=== PATIENT | female | born 1980 | race Caucasian/White ===

== ENCOUNTER 2022-01-22 13:09 | Emergency (ER) | payer MEDICARE, SELFPAY ==
[2022-01-22 13:15] VITALS: BP 128/66; PULSE 79; RESP 20; TEMP 36.5; O2SAT 98
== END 2022-01-22 13:25 | disposition left before discharge ==
DX: Z53.21 Procedure and treatment not carried out due to patient leaving prior to being seen by health care provider (principal)

== ENCOUNTER 2022-04-29 13:05 | Emergency (ER) | payer MEDICARE, MEDICAID, SELFPAY ==
[2022-04-29 13:10] VITALS: BP 116/86; PULSE 61; RESP 20; TEMP 36.6; O2SAT 96
--- NOTE | 2022-04-29 14:14 | ED.GENADUL_ITS ---
Discharge Plan Disposition Patient Disposition: Home Condition: Good Discharge Details Clinical Impression: Encounter for medication refill Primary Care Provider: None,None ED Provider: Denise Alejo Home Meds and New Rx's Prescriptions: New insulin degludec [Tresiba U-100 Insulin] 100 unit/mL solution 40 unit subcut QAM 30 Days Qty: 12 0RF Continued gabapentin [Neurontin] 600 MG tablet 600 mg PO TID insulin aspart U-100 [Novolog Flexpen U-100 Insulin] 100 UNIT/ML insulin pen Sub-Q TID Label Comments: unsure of dose / ran out insulin glargine [Basaglar KwikPen U-100 Insulin] 100 UNIT/ML insulin pen Sub-Q HS Label Comments: unsure of dose / ran out insulin aspart U-100 [Novolog Flexpen U-100 Insulin] 100 UNIT/ML insulin pen 5 units SQ TID Qty: 1 0RF Rx Instructions: Injected by subcutaneous route 5 units of insulin with breakfast, lunch, and dinner (DME) pen needle, diabetic [Pen Needle] 1 EACH needle 1 ea Miscellaneous TID Qty: 90 0RF Rx Instructions: 31 gauge x5/16 Discharge Instructions Additional Instructions: Your medication of 40 mg Tresiba once every morning has been sent to your pharmacy of choice. I have also asked our care management team to assist you in setting up local primary care soon as possible and local endocrinology. Please continue to monitor your glucose and follow the instructions given to you by your previous outside operator. If you develop any new or worsening symptoms please seek care urgently once again. Medical Decision Making Patient is a pleasant 41 year old female, new to the area, presenting with c/c of running out of medication. She states that she moved here from [place] in December. Sign Out No HPI General Date/Time Provider Initiated Documentation: 04/29/22 14:00 . Related Data Home Medications Medication Instructions Recorded Confirmed gabapentin 600 mg tablet 600 mg PO TID 12/08/17 12/08/17 (Neurontin) insulin aspart U-100 100 unit/mL 5 units (0.05 mL) SQ TID #1 mL 12/08/17 (3 mL) subcutaneous pen (Novolog Flexpen U-100 Insulin aspart) insulin aspart U-100 100 unit/mL units subcut TID 12/08/17 (3 mL) subcutaneous pen (Novolog Flexpen U-100 Insulin aspart) insulin glargine 100 unit/mL (3 units subcut HS 12/08/17 mL) subcutaneous pen (Basaglar KwikPen U-100 Insulin) pen needle, diabetic 29 gauge x ##90 12/08/17 1/2 (Pen Needle) insulin degludec 100 unit/mL 40 unit (0.4 mL) subcut QAM 1 04/29/22 subcutaneous solution (Tresiba month #12 mL U-100 Insulin) Previous Rx's Medication Instructions Recorded insulin aspart U-100 100 unit/mL 5 units (0.05 mL) SQ TID #1 mL 12/08/17 (3 mL) subcutaneous pen (Novolog Flexpen U-100 Insulin aspart) pen needle, diabetic 29 gauge x ##90 12/08/17 1/2 (Pen Needle) insulin degludec 100 unit/mL 40 unit (0.4 mL) subcut QAM 1 04/29/22 subcutaneous solution (Tresiba month #12 mL U-100 Insulin) Allergies Allergy/AdvReac Type Severity Reaction Status Date / Time tomato AdvReac Intermediate severe Unverified 01/22/22 13:20 migraines/abd cramping/diarrhea General Stated Complaint: Diabetes DERRELL: 4 PFSH All Active Problems (Updated 04/29/22 @ 14:30 by BERNARDO Payne) Encounter for medication refill (Acute) Social History Smoking/Tobacco Use Status: Current every day Tobacco Type: cigarettes Smoking risk assessment performed?: Yes Alcohol Intake: current Alcohol Intake frequency: holidays/special occasions only Drug use: Daily Substance use type: marijuana Do you feel safe in your relationship?: Yes Course Vital Signs Vital signs: Vital Signs Temperature 36.6 C 04/29/22 13:10 Pulse 61 04/29/22 13:10 Respiratory Rate 20 04/29/22 13:10 Blood Pressure 116/86 04/29/22 13:10 Pulse Oximetry 96 04/29/22 13:10 Temperature 36.6 C 04/29/22 13:10 Temperature Source Temporal Artery Scan 04/29/22 13:10 Pulse 61 04/29/22 13:10 Respiratory Rate 20 04/29/22 13:10 Blood Pressure 116/86 04/29/22 13:10 Blood Pressure Position Sitting 04/29/22 13:10 Pulse Oximetry 96 04/29/22 13:10 Oxygen Delivery Method Room Air 04/29/22 13:10 Oxygen Flow Rate 0 04/29/22 13:10
--- NOTE | 2022-04-29 15:58 | NUR.NOTE ---
Nursing Note:REFERRAL TO CM FO PCP AND ENDO ESTABLISH
== END 2022-04-29 14:49 | disposition home or self-care (01) ==
PROVIDERS: Emergency Provider Physician Assistant
DX: E11.9 Type 2 diabetes mellitus without complications (principal); Z79.4 Long term (current) use of insulin
CPT/HCPCS: 99283

== ENCOUNTER 2022-05-15 15:08 | Emergency (ER) | payer OTHER, SELFPAY ==
[2022-05-15 15:21] VITALS: BP 143/88; PULSE 72; RESP 22; TEMP 37.1; O2SAT 97
--- NOTE | 2022-05-15 16:00 | DI.CT_ITS ---
Exam(s) CT THORACIC LUMBAR SPINE WO EXAM: CT THORACIC LUMBAR SPINE WO CLINICAL HISTORY: fall/trauma. TECHNIQUE: Imaging Protocol: Axial computed tomography images with coronal and sagittal reformatted images were created and reviewed. CONTRAST MATERIAL: Intravenous: None COMPARISON: CT CT CERVICAL SPINE WO from 05/15/2022 FINDINGS: THORACIC SPINAL COLUMN: No fractures nor listhesis. No disc space narrowing. No facet malalignment. No canal compromise. No incidental adjacent soft tissue findings. LUMBOSACRAL SPINAL COLUMN: No fracture or listhesis. No significant disc space narrowing. No facet malalignment. No canal compromise. Partially visualized sacrum unremarkable as are the SI joints. No incidental adjacent soft tissue findings. IMPRESSION: Normal CT of the thoracic and lumbar spine. No fractures evident. RADIATION DOSE DELIVERED: Total DLP DATA REPOSITORY: All CT scans at this facility are submitted to the National Radiology Data Registry (NRDR) Dose Index Registry (DIR) with the [employer] ([employer]). RADIATION OPTIMIZATION: All CT scans at this facility use at least one of these dose optimization te chniques: automated exposure control; mA and/or kV adjustment per patient size (includes targeted exa ms where dose is matched to clinical indication); or iterative reconstruction.
--- NOTE | 2022-05-15 16:00 | DI.CT_ITS ---
Exam(s) CT CERVICAL SPINE WO EXAM: CT CERVICAL SPINE WO CLINICAL HISTORY: fall/trauma. TECHNIQUE: Imaging Protocol: Axial computed tomography images with coronal and sagittal reformatted images were created and reviewed COMPARISON: CT ABD PELVIS WITH CONTRAST from 12/08/2017 FINDINGS: CERVICAL SPINE: There is no evidence of fracture nor listhesis. No significant prevertebral soft tissue swelling. There is no significant facet joint malalignment. No significant osseous lesions evident. IMPRESSION: No evidence of cervical spine fracture, malalignment, nor acute compromise of the cervical spinal can al. RADIATION DOSE DELIVERED: 2288.27 mGy.cm Total DLP DATA REPOSITORY: All CT scans at this facility are submitted to the National Radiology Data Registry (NRDR) Dose Index Registry (DIR) with the [employer] ([employer]). RADIATION OPTIMIZATION: All CT scans at this facility use at least one of these dose optimization te chniques: automated exposure control; mA and/or kV adjustment per patient size (includes targeted exa ms where dose is matched to clinical indication); or iterative reconstruction.
[2022-05-15] MEDS: HYDROcodone 5/Acetaminophen 325 TAB PO (16:27)
--- NOTE | 2022-05-15 17:56 | DI.VRAD_ITS ---
PROCEDURE INFORMATION: Exam: CT Cervical Spine Without Contrast Exam date and time: 05/15/2022 17:13 Age: 41 years old Clinical indication: Other: Fall/ trauma TECHNIQUE: Imaging protocol: Computed tomography of the cervical spine without contrast. COMPARISON: No relevant prior studies available. FINDINGS: Bones/joints: Reversal of the normal cervical lordosis. No acute fracture or subluxation. No significant central canal stenosis. Lungs: Lung apices were not significantly imaged. Soft tissues: No suspicious lesions. IMPRESSION: No cervical spine fracture. Dictated and Authenticated by: Ludmila Lima MD. Ordering:KYA Harding MD
--- NOTE | 2022-05-15 17:57 | DI.VRAD_ITS ---
PROCEDURE INFORMATION: Exam: CT Thoracic Spine Without Contrast Exam date and time: 05/15/2022 17:13 Age: 41 years old Clinical indication: Other: Fall/trauma; Other: Fall trauma TECHNIQUE: Imaging protocol: Computed tomography of the thoracic spine without contrast. COMPARISON: CT ABD PELVIS WITH CONTRAST 12/08/2017 11:13 FINDINGS: Bones/joints: No acute fracture or subluxation. No significant central canal stenosis. Soft tissues: No suspicious lesions. IMPRESSION: No acute bony pathology. PROCEDURE INFORMATION: Exam: CT Lumbar Spine Without Contrast Exam date and time: 05/15/2022 17:13 Age: 41 years old Clinical indication: Other: Fall/trauma; Other: Fall trauma TECHNIQUE: Imaging protocol: Computed tomography of the lumbar spine without contrast. COMPARISON: CT ABD PELVIS WITH CONTRAST 12/08/2017 11:13 FINDINGS: Bones/joints: No acute fracture or subluxation. Minimal endplate hypertrophy. No significant central canal stenosis. Soft tissues: No suspicious lesions. IMPRESSION: No acute bony pathology. Dictated and Authenticated by: Ludmila Lima MD. Ordering:KYA Harding MD
--- NOTE | 2022-05-15 18:08 | W.ED.GENAD ---
Discharge Plan Disposition Patient Disposition: Home Condition: Stable Discharge Details Clinical Impression: Back pain due to injury, Fall Primary Care Provider: James Wright ED Provider: Mehdi Grimaldo Home Meds and New Rx's Prescriptions: Continued Jardiance 10 mg tablet 10 mg PO DAILY Qty: 90 3RF glimepiride 4 mg tablet 4 mg PO DAILY Qty: 90 3RF insulin degludec [Tresiba U-100 Insulin] 100 unit/mL solution 40 unit subcut QAM 30 Days Qty: 36 3RF Linzess 72 mcg capsule 72 mcg PO DAILY Qty: 90 3RF (DME) pen needle, diabetic [Pen Needle] 29 gauge x 1/2 needle 1 ea Miscellaneous TID Qty: 90 3RF Rx Instructions: 31 gauge x5/16 Once daily (DME) FreeStyle Andreia 2 [place] Misc See Rx Instructions .ROUTE Qty: 1 3RF Rx Instructions: As directed (DME) FreeStyle Andreia 2 Sensor Kit See Rx Instructions .ROUTE Qty: 1 3RF Rx Instructions: As directed gabapentin [Neurontin] 600 MG tablet 600 mg PO TID Discharge Instructions Instructions: Back Pain (ED) Additional Instructions: Please use limited amount of narcotics that were provided for severe pain only. You may continue to use [id number] medications as needed for pain and discomfort. Please rest over the next couple days and then slowly advance activity as tolerated. If not improving follow-up with your primary care provider for reassessment. Stand Alone Forms: Work Release Referrals: James Wright, [employer] [Primary Care Provider] - Medical Decision Making Patient presenting to the emergency department for chief complaint of slip on wet ground while at work. Patient states she landed right on her lower spine. Patient states significant history of previous spinal problems including problems with multiple lumbar vertebrae and thoracic vertebrae. She states she is pending seeing neurosurgery for these. Patient has significant and severe tenderness and stating radiating pain into legs and upper extremities. Physical exam shows diffuse tenderness through palpation of lumbar and thoracic spine making it difficult to isolate point of injury. Patient also does complain of some cervical spinal tenderness. Patient denies any loss of consciousness chest pain. Given patient's extreme amount of pain that I feel may be slightly psychological in nature but patient also had acute trauma so we will perform CT imaging for evaluation of's potential spinal findings. Pending results we will give patient oral Levasy. Review of radiologist interpretation shows no acute fractures or findings. Will discharge patient with recommended use of continued [id number] medications and rest over the next couple days. Imaging Data Radiologic Study: Imaging: CT Scan Radiologist's impression: Exam(s) PROCEDURE INFORMATION: Exam: CT Thoracic Spine Without Contrast Exam date and time: 05/15/2022 17:13 Age: 41 years old Clinical indication: Other: Fall/trauma; Other: Fall trauma TECHNIQUE: Imaging protocol: Computed tomography of the thoracic spine without contrast. COMPARISON: CT ABD PELVIS WITH CONTRAST 12/08/2017 11:13 FINDINGS: Bones/joints: No acute fracture or subluxation. No significant central canal stenosis. Soft tissues: No suspicious lesions. IMPRESSION: No acute bony pathology. PROCEDURE INFORMATION: Exam: CT Lumbar Spine Without Contrast Exam date and time: 05/15/2022 17:13 Age: 41 years old Clinical indication: Other: Fall/trauma; Other: Fall trauma TECHNIQUE: Imaging protocol: Computed tomography of the lumbar spine without contrast. COMPARISON: CT ABD PELVIS WITH CONTRAST 12/08/2017 11:13 FINDINGS: Bones/joints: No acute fracture or subluxation. Minimal endplate hypertrophy. No significant central canal stenosis. Soft tissues: No suspicious lesions. IMPRESSION: No acute bony pathology. Radiologic Study #2: Imaging: CT Scan Radiologist's impression: Exam(s) PROCEDURE INFORMATION: Exam: CT Cervical Spine Without Contrast Exam date and time: 05/15/2022 17:13 Age: 41 years old Clinical indication: Other: Fall/ trauma TECHNIQUE: Imaging protocol: Computed tomography of the cervical spine without contrast. COMPARISON: No relevant prior studies available. FINDINGS: Bones/joints: Reversal of the normal cervical lordosis. No acute fracture or subluxation. No significant central canal stenosis. Lungs: Lung apices were not significantly imaged. Soft tissues: No suspicious lesions. IMPRESSION: No cervical spine fracture. HPI General Mode of arrival: ambulatory. Date/Time Provider Initiated Documentation: 05/15/22 15:57. Limitations to Documentation: no limitations. Information obtained by: patient and RN notes reviewed. History of Present Illness 41 year old F presents to the emergency department with the chief complaint of fall back injury, described as severe, with intensity rated at 10. Quality is described as sharp, and is localized to the neck and back. Patient extremity. Patient started experiencing this hour(s) (1) and it has been constant. No relieving factors improve symptom(s), Movement worsens symptoms . Patient notes no other symptoms.. Patient did receive the following treatments prior to arrival, NSAID Related Data Home Medications Medication Instructions Recorded Confirmed gabapentin 600 mg tablet 600 mg PO TID 12/08/17 05/15/22 (Neurontin) empagliflozin 10 mg tablet 10 mg PO DAILY #90 tabs 05/03/22 05/15/22 (Jardiance) flash glucose scanning reader #1 ea 05/03/22 05/15/22 (FreeStyle Andreia 2 [place]) flash glucose sensor (FreeStyle #1 ea 05/03/22 05/15/22 Andreia 2 Sensor kit) glimepiride 4 mg tablet 4 mg PO DAILY #90 tabs 05/03/22 05/15/22 insulin degludec 100 unit/mL 40 unit (0.4 mL) subcut QAM 1 05/03/22 05/15/22 subcutaneous solution (Tresiba month #36 mL U-100 Insulin) linaclotide 72 mcg capsule 72 mcg PO DAILY #90 caps 05/03/22 05/15/22 (Linzess) pen needle, diabetic 29 gauge x ##90 05/03/22 05/15/22 1/2 (Pen Needle) Previous Rx's Medication Instructions Recorded empagliflozin 10 mg tablet 10 mg PO DAILY #90 tabs 05/03/22 (Jardiance) flash glucose scanning reader #1 ea 05/03/22 (FreeStyle Andreia 2 [place]) flash glucose sensor (FreeStyle #1 ea 05/03/22 Andreia 2 Sensor kit) glimepiride 4 mg tablet 4 mg PO DAILY #90 tabs 05/03/22 insulin degludec 100 unit/mL 40 unit (0.4 mL) subcut QAM 1 05/03/22 subcutaneous solution (Tresiba month #36 mL U-100 Insulin) linaclotide 72 mcg capsule 72 mcg PO DAILY #90 caps 05/03/22 (Linzess) pen needle, diabetic 29 gauge x ##90 05/03/22 1/2 (Pen Needle) Allergies Allergy/AdvReac Type Severity Reaction Status Date / Time sulfamethoxazole Allergy Verified 05/15/22 15:26 [From Bactrim] trimethoprim [From Bactrim] Allergy Verified 05/15/22 15:26 tomato AdvReac Intermediate severe Unverified 05/15/22 15:26 migraines/abd cramping/diarrhea dapagliflozin AdvReac Verified 05/15/22 15:26 General Stated Complaint: Nk/Back Pain DERRELL: 3 Review of Systems Constitutional Constitutional: Denies chills and Denies fever(s) Cardiovascular Cardiovascular: Denies chest pain and Denies dyspnea on exertion Respiratory Respiratory: Denies cough and Denies dyspnea on exertion Gastrointestinal Gastrointestinal: Denies abdominal pain, Denies change in bowel habits, Denies diarrhea, Denies nausea and Denies vomiting Genitourinary Genitourinary: Denies urinary incontinence Musculoskeletal Musculoskeletal: Reports as per HPI and Reports back pain Neurologic Neurologic: Denies sensory deficit PFSH All Active Problems (Updated 05/15/22 @ 18:20 by Mehdi Grimaldo NP) Back pain due to injury (Acute) Fall (Acute) Low back pain (Acute) Neuropathy (Acute) Borderline personality disorder (Acute) PTSD (post-traumatic stress disorder) (Acute) Bipolar 2 disorder, major depressive episode (Acute) Type 2 diabetes mellitus not at goal (Acute) Gastroparesis (Acute) Surgical History H/O total hysterectomy Hx of section x3 Social History Smoking/Tobacco Use Status: Current every day Tobacco Type: cigarettes Smoking risk assessment performed?: Yes Alcohol Intake: current Alcohol Intake frequency: holidays/special occasions only Drug use: Daily Substance use type: marijuana Do you feel safe at home: Yes Do you feel safe in your relationship?: Yes Exam Const General: cooperative and no acute distress Orientation: alert, awake and oriented x3 Resp Effort & Inspection: normal respiratory effort Auscultation: clear to auscultation bilaterally Cardio Rate: regular rate Rhythm: regular rhythm Heart Sounds: S1 normal and S2 normal GI Palpation: no hepatosplenomegaly, no aortic enlargement, no masses and no pulsatile masses Back/Spine/Pelvis Cervical Spine: normal cervical lordosis, cervical muscular tenderness, pain with cervical ROM, No cervical spasm, cervical spinal tenderness and No step off deformity Thoracic/Lumbar Spine: thoracic and lumbar spine normal to inspection, pain with thoraco-lumbar ROM, paraspinal tenderness (more on right than left), thoracic spinal tenderness and lumbar spinal tenderness Sacrum: tenderness Coccyx: tenderness Skin General skin exam: no rashes or lesions noted Trauma: no lacerations or abrasions Neuro General: patient alert, patient awake and patient oriented x3 Cognition: normal cognition Speech: speech normal Sensory Exam: no sensory deficits noted DTR's: Rt Patellar: 1+, Lt Patellar: 1+, Rt Ankle: 1+ and Lt Ankle: 1+ Course Vital Signs Vital signs: Vital Signs Temperature 37.1 C 05/15/22 15:21 Pulse 72 05/15/22 15:21 Respiratory Rate 22 05/15/22 15:21 Blood Pressure 143/88 H 05/15/22 15:21 Pulse Oximetry 97 05/15/22 15:21 Temperature 37.1 C 05/15/22 15:21 Temperature Source Temporal Artery Scan 05/15/22 15:21 Pulse 72 05/15/22 15:21 Respiratory Rate 22 05/15/22 15:21 Respiratory Effort Non-Labored 05/15/22 15:25 Blood Pressure 143/88 H 05/15/22 15:21 Blood Pressure Position Sitting 05/15/22 15:21 Pulse Oximetry 97 05/15/22 15:21 Oxygen Delivery Method Room Air 05/15/22 15:21 Oxygen Flow Rate 0 05/15/22 15:21 Pain Level 10 05/15/22 16:27
== END 2022-05-15 18:37 | disposition home or self-care (01) ==
PROVIDERS: Emergency Provider Nurse Practitioner Family; PCP Nurse Practitioner Family
DX: M54.50 Low back pain, unspecified (principal); W01.0XXA Fall on same level from slipping, tripping and stumbling without subsequent striking against object, initial encounter; Y99.0 Civilian activity done for income or pay
CPT/HCPCS: 99284; 72125; 72128; 72131; 99283

== ENCOUNTER 2022-05-16 02:30 | Outpatient (CLI) | payer MEDICARE, MEDICAID, SELFPAY ==
[2022-05-16 12:44] LABS: CREATININE 0.9 mg/dL (0.55-1.02); Calculated LDL 119 mg/dL (<100); Cholesterol 207 mg/dL (<200); HDL Cholesterol 46 mg/dL (40-60); Triglyceride 213 mg/dL (<150)
== END 2022-05-16 02:31 | disposition home or self-care (01) ==
LOC: LOS 02:32
PROVIDERS: PCP Nurse Practitioner Family; Visit Provider Nurse Practitioner Family
DX: E11.9 Type 2 diabetes mellitus without complications (principal); Z13.220 Encounter for screening for lipoid disorders
CPT/HCPCS: 36415; 80061; 82565; 83036

== ENCOUNTER 2022-07-22 13:09 | Outpatient (REF) | payer OTHER, MEDICAID, SELFPAY ==
[2022-07-24 12:06] LABS: COVID-19 RT-PCR UVMMC Result Presumptive Positive (Negative)
== END 2022-07-22 13:10 | disposition home or self-care (01) ==
LOC: LBN 13:09
PROVIDERS: PCP Nurse Practitioner Family; Visit Provider Nurse Practitioner Family
DX: Z20.822 Contact with and (suspected) exposure to COVID-19 (principal)
CPT/HCPCS: U0003

== ENCOUNTER 2022-08-20 12:38 | Emergency (ER) | payer OTHER, MEDICAID, SELFPAY ==
[2022-08-20 12:47] VITALS: BP 139/81; PULSE 99; RESP 18; TEMP 36.9; O2SAT 96
--- OUTSIDE RECORDS SUMMARY | 2022-08-20 12:49 | XMS_ITS | Continuity of Care Document ---
Author Name Unknown Organization [facility] Address [address] [place] [address] Encounter LTTL_GA FIN NBR [id number] Date(s): 03/11/22 - 03/11/22 [facility] [address], [place] [address] Encounter Diagnosis Arm paresthesia, right(Discharge Diagnosis) - 03/11/22 Discharge Disposition: Home or Self Care Attending Physician: King Adame MD Admitting Physician: King Adame MD Allergies, Adverse Reactions, Alerts No Known Allergies Functional Status 03/11/22 Recent Travel History No recent travel Other exposure to Infectious Disease Non e Medications glimepiride 4 mg oral tablet 4 mg = 1 tab, Oral, Daily, # 30 tab, 0 Refill(s) Start Date: 03/11/22 Status: Ordered Jardiance 10 mg oral tablet 10 mg = 1 tab, Oral, every morning, # 30 tab, 0 Refill(s) Start Date: 03/11/22 Status: Ordered ketorolac 10 mg oral tablet 10 mg = 1 tab, Oral, QID, PRN as needed for pain, not to exceed 40 mg/day and 5 days duration for all dose forms, # 12 tab, 0 Refill(s), [id number], 167, cm, 03/11/22 15:49:00 EDT, Height/Length Dosing, 108.86, kg, 03/11/22... Start Date: 03/11/22 Status: Ordered Tresiba FlexTouch 100 units/mL subcutaneous solution 40 units =, 0 Refill(s) Start Date: 03/11/22 Status: Ordered Mental Status 03/11/22 Eye Opening Response Sasha Spontaneous ly Best Verbal Response [place]asha Oriented Best Motor Response [place] Obeys comman ds [place] Coma Score 15 Results Laboratory List Name Date Comprehensive Metabolic Panel 03/11/22 CBC w/ Diff 03/11/22 Sedimentation Rate (ESR) 03/11/22 Automated Diff 03/11/22 Most recent to oldest [Reference Range]: 1 WBC [4.8-10.8 K/mcL] 9.0 K/mcL (03/11/22 4:31 PM) RBC [4.20-6.10 Million/mcL] 5.08 Million /mcL (03/11/22 4:31 PM) Neutro Auto [42.2-75.2 %] 60.9 % (03/11/22 4:31 PM) Lymph Auto [20.5-51.1 %] 31.1 % (03/11/22 4:31 PM) [place] Auto [1.7-9.3 %] 5.2 % (03/11/22 4:31 PM) Basophil Auto [0.0-0.2 %] 0.8 % *HI* (03/11/22 4:31 PM) BUN [8-26 mg/dL] 13 mg/dL (03/11/22 4:53 PM) Glucose Level [74-106 mg/dL] 77 mg/dL (03/11/22 4:53 PM) Potassium Level [3.5-5.1 mmol/L] 3.6 mmo l/L (03/11/22 4:53 PM) Baso Absolute [0.0-0.2 K/mcL] 0.1 K/mcL (03/11/22 4:31 PM) MCV [80.0-99.0 fL] 91.1 fL (03/11/22 4:31 PM) AST [15-41 IntlUnit/L] 16 IntlUnit/L (03/11/22 4:53 PM) ALT [14-54 IntlUnit/L] 19 IntlUnit/L (03/11/22 4:53 PM) MCHC [32.0-36.0 g/dL] 33.0 g/dL (03/11/22 4:31 PM) Osmolality [275-295 mOsm/kg] 273 mOsm/kg *LOW* (03/11/22 4:53 PM) Sodium Level [134-143 mmol/L] 137 mmol/L (03/11/22 4:53 PM) Lymph Absolute [1.2-3.4 K/mcL] 2.8 K/mcL (03/11/22 4:31 PM) Hct [37.0-52.0 %] 46.3 % (03/11/22 4:31 PM) Calcium Level [8.9-10.3 mg/dL] 9.1 mg/dL (03/11/22 4:53 PM) [place] Absolute [0.1-0.6 K/mcL] 0.5 K/mcL (03/11/22 4:31 PM) Albumin Level [3.5-5.0 g/dL] 3.9 g/dL (03/11/22 4:53 PM) Protein Total [6.5-8.1 g/dL] 7.0 g/dL (03/11/22 4:53 PM) MCH [27.0-31.0 pg] 30.1 pg (03/11/22 4:31 PM) Neutro Absolute [1.4-6.5 K/mcL] 5.5 K/mc L (03/11/22 4:31 PM) Bilirubin Total [0.2-1.2 mg/dL] 0.8 mg/d L (03/11/22 4:53 PM) Hgb [12.0-18.0 g/dL] 15.3 g/dL (03/11/22 4:31 PM) Alk Phos [38-130 IntlUnit/L] 62 IntlUnit /L (03/11/22 4:53 PM) MPV [7.4-10.4 fL] 10.7 fL *HI* (03/11/22 4:31 PM) Platelets [130-400 K/mcL] 301 K/mcL (03/11/22 4:31 PM) CO2 [22-32 mmol/L] 26 mmol/L (03/11/22 4:53 PM) Eos Absolute [0.0-0.2 K/mcL] 0.2 K/mcL (03/11/22 4:31 PM) eGFR Non-AA 113 *NA* (03/11/22 4:53 PM) eGFR AA 113 *NA* (03/11/22 4:53 PM) Chloride Level [98-111 mmol/L] 104 mmol/ L (03/11/22 4:53 PM) RDW-CV [11.5-14.5 %] 12.9 % (03/11/22 4:31 PM) A/G Ratio 1.3 *NA* (03/11/22 4:53 PM) BUN/Creat Ratio [8.0-20.0] 18.6 (03/11/22 4:53 PM) Globulin 3.1 *NA* (03/11/22 4:53 PM) Imm Gran Absolute 0.02 *NA* (03/11/22 4:31 PM) Imm Gran Auto [0.0-0.5 %] 0.2 % (03/11/22 4:31 PM) Creatinine Level [0.44-1.00 mg/dL] 0.70 mg/dL (03/11/22 4:53 PM) Anion Gap [3.0-12.0] 7.0 (03/11/22 4:53 PM) Eos, Auto [0.00-3.00 %] 1.80 % (03/11/22 4:31 PM) ESR, [place] [0-20 mm/hr] 11 mm/hr (03/11/22 4:31 PM) Radiology Reports * Exam Date Time Procedure Performing Provider Status 03/11/22 4:[address] Spine Cervical w/o Contrast Danuta Hudson; Greg (Verified) Notes: (CT Spine Cervical w/o Contrast) Reason For Exam: radicular CT Spine Cervical w/o Contrast EXAM DESCRIPTION: CT Spine Cervical w/o Contrast 03/11/2022 INDICATION: RADICULAR TECHNIQUE: All CT scans at this facility use at least one of these dose optimization techniques: Automated exposure control; mA and/or kV adjustment per patient size (includes targeted exams where dose is matched to clinical indication); or iterative reconstruction. CT examination of the cervical spine with thin section axial images including sagittal and coronal MPR images performed on a separate workstation under concurrent supervision. COMPARISON: None available FINDINGS: No acute fracture or subluxation. Prevertebral soft tissues are within normal limits. Intervertebral disc spaces are well maintained throughout the cervical region without significant spondylotic changes. No significant osseous encroachment on the cervical spinal canal. No significant osseous encroachment on the neural foramina throughout the cervical region. No focal lytic or sclerotic lesion Mild reversal of cervical lordosis which may reflect patient positioning or muscle spasm. Paraspinal soft tissues are unremarkable. Visualized lung apices are clear. IMPRESSION: No acute fracture or subluxation No significant spondylotic changes Mild reversal of cervical lordosis which may reflect patient positioning or muscle spasm. JOB #: [id number] Final Signed by: Kalen Adam MD Signed (Electronic Signature): 03/11/2022 4:49 pm Vital Signs Most recent to oldest [Reference Range]: 1 Temperature Temporal Artery [36-38 Deg C ] 36.7 Deg C (03/11/22 3:22 PM) Peripheral Pulse Rate [60-100 bpm] 73 bp m (03/11/22 3:22 PM) Respiratory Rate [12-24 br/min] 16 br/mi n (03/11/22 3:22 PM) Blood Pressure [90-140/60-90 mmHg] 123/7 7mmHg (03/11/22 3:22 PM) Weight Dosing 108.86 kg (03/11/22 3:49 PM) Weight Estimated 108.86 kg (03/11/22 3:22 PM) Height/Length Dosing 167.000 cm (03/11/22 3:49 PM) Height/Length Estimated 167.000 cm (03/11/22 3:22 PM) Social History Social History Type Response Smoking Status Smoking tobacco use: Current everyday tobacco user;Never; Number used per day: 20; entered on: 03/11/22 Sex Hospital Discharge Instructions Patient Education 03/11/2022 17:44:25 Paresthesia Paresthesia Paresthesia is an abnormal burning or prickling sensation. It is usually felt in the hands, arms, legs, or feet. However, it may occur in any part of the body. Usually, paresthesia is not painful. Itmay feel like: ??? Tingling or numbness. ??? Buzzing. ??? Itching. Paresthesia may occur without any clear cause, or it may be caused by: ??? Breathing too quickly (hyperventilation). ??? Pressure on a nerve. ??? An underlying medical condition. ??? Side effects of a medication. ??? Nutritional deficiencies. ??? Exposure to toxic chemicals. Most people experience temporary (transient) paresthesia at some time in their lives. For some people, it may be long-lasting (chronic) because of an underlying medical condition. If you have paresthesia that lasts a long time, you need to be evaluated by your health care provider. Follow these instructions at home: Alcohol use ??? Do not drink alcohol if: ??? Your health care provider tells you not to drink. ??? You are , may be , or are planning to become . ??? If you drink alcohol: ??? Limit how much you use to: ??? 0???1 drink a day for women. ??? 0???2 drinks a day for men. ??? Be aware of how much alcohol is in your drink. In the [place] one drink equals one 12 oz bottle of beer (355 mL), one 5 oz glass of wine (148 mL), or one 1?? oz glass of hard liquor (44 mL). Nutrition ??? Eat a healthy diet. This includes: ??? Eating foods that are high in fiber, such as fresh fruits and vegetables, whole grains, and beans. ??? Limiting foods that are high in fat and processed sugars, such as fried or sweet foods. General instructions ??? Take [id number] and prescription medicines only as told by your health care provider. ??? Do not use any products that contain nicotine or tobacco, such as cigarettes and e-cigarettes. These can keep blood from reaching damaged nerves. If you need help quitting, ask your health care provider. ??? If you have diabetes, work closely with your health care provider to keep your blood sugar under control. ??? If you have numbness in your feet: ??? Check every day for signs of injury or infection. Watch for redness, warmth, and swelling. ??? Wear padded socks and comfortable shoes. These help protect your feet. ??? Keep all follow-up visits as told by your health care provider. This is important. Contact a health care provider if you: ??? Have paresthesia that gets worse or does not go away. ??? Have numbness after an injury. ??? Have a burning or prickling feeling that gets worse when you walk. ??? Have pain, cramps, or dizziness, or you faint. ??? Develop a rash. Get help right away if you: ??? Feel muscle weakness. ??? Develop new weakness in an arm or leg. ??? Have trouble walking or moving. ??? Have problems with speech, understanding, or vision. ??? Feel confused. ??? Cannot control your bladder or bowel movements. Summary ??? Paresthesia is an abnormal burning or prickling sensation that is usually felt in the hands, arms, legs, or feet. It may also occur in other parts of the body. ??? Paresthesia may occur without any clear cause, or it may be caused by breathing too quickly (hyperventilation), pressure on a nerve, an underlying medical condition, side effects of a medication,nutritional deficiencies, or exposure to toxic chemicals. ??? If you have paresthesia that lasts a long time, you need to be evaluated by your health care provider. This information is not intended to replace advice given to you by your health care provider. Make sure you discuss any questions you have with your health care provider. Document Revised: 02/13/2021 Document Reviewed: 02/13/2021 [employer] Patient Education ?? 2021 [employer] Follow Up Care 03/11/2022 15:22:09 With:Follow up with Orthopedic Address: When:1 week Comments:for lack of improvement CT Cervical spine WO contrast * Kalen Adam MD: VERIFY, VERIFY Event Display: Report EXAM DESCRIPTION: CT Spine Cervical w/o Contrast 03/11/2022 INDICATION: RADICULAR TECHNIQUE: All CT scans at this facility use at least one of these dose optimization techniques: Automated exposure control; mA and/or kV adjustment per patient size (includes targeted exams where dose is matched to clinical indication); or iterative reconstruction. CT examination of the cervical spine with thin section axial images including sagittal and coronal MPR images performed on a separate workstation under concurrent supervision. COMPARISON: None available FINDINGS: No acute fracture or subluxation. Prevertebral soft tissues are within normal limits. Intervertebral disc spaces are well maintained throughout the cervical region without significant spondylotic changes. No significant osseous encroachment on the cervical spinal canal. No significant osseous encroachment on the neural foramina throughout the cervical region. No focal lytic or sclerotic lesion Mild reversal of cervical lordosis which may reflect patient positioning or muscle spasm. Paraspinal soft tissues are unremarkable. Visualized lung apices are clear. IMPRESSION: No acute fracture or subluxation No significant spondylotic changes Mild reversal of cervical lordosis which may reflect patient positioning or muscle spasm. JOB #: [id number] Final Signed by: Kalen Adam MD Signed (Electronic Signature): 03/11/2022 4:49 pm
--- OUTSIDE RECORDS SUMMARY | 2022-08-20 12:49 | XMS_ITS | Continuity of Care Document ---
Author Name Unknown Organization [facility] Address [address] [place] [address] Encounter [facility] NBR [id number] Date(s): 04/04/22 - 04/04/22 [facility] [address] [place], [place] [id number] Encounter Diagnosis Diabetes(Discharge Diagnosis) - 04/04/22 Discharge Disposition: Home or Self Care Attending Physician: Lyndsey Johnston APRN Allergies, Adverse Reactions, Alerts Substance Reaction Severity Status sulfamethoxazole-trimethoprim Unknown Active dapagliflozin Unknown Active Tomatoes Unknown Active Functional Status 04/04/22 Other exposure to Infectious Disease Non e Medications 1 box 1 box, Supply, 1 EA, N/A, As Directed, PRN As needed, # 100 EA, 13 Refill(s), Pharmacy: [facility] #[id number] Start Date: 04/04/22 Status: Ordered Basaglar KwikPen 100 units/mL subcutaneous solution 0 Refill(s) Start Date: 04/04/22 Status: Ordered Basaglar KwikPen 100 units/mL subcutaneous solution 10 units =, Subcutaneous, every night at bedtime, # 10 mL, 0 Refill(s), Pharmacy: [facility] #[id number], 167, cm, 03/11/22 15:49:00 EDT, Height/Length Dosing, 108.86, kg, 03/11/22 15:49:00 EDT,Weight Dosing Start Date: 04/04/22 Status: Ordered gabapentin 100 mg oral capsule 100 mg = 1 cap, Oral, TID, # 90 cap, 0 Refill(s) Start Date: 04/04/22 Status: Ordered glimepiride 4 mg oral tablet 4 mg = 1 tab, Oral, Daily, # 30 tab, 0 Refill(s) Start Date: 03/11/22 Status: Ordered glimepiride 4 mg oral tablet 4 mg = 1 tab, Oral, Daily, # 90 tab, 0 Refill(s), Pharmacy: [facility] #[id number], 167, cm, 03/11/22 15:49:00 EDT, Height/Length Dosing, 108.86, kg, 03/11/22 15:49:00 EDT, Weight Dosing Start Date: 04/04/22 Status: Ordered Jardiance 10 mg oral tablet 10 mg = 1 tab, Oral, every morning, # 30 tab, 0 Refill(s) Start Date: 03/11/22 Status: Ordered Jardiance 10 mg oral tablet 10 mg = 1 tab, Oral, every morning, # 30 tab, 0 Refill(s), Pharmacy: [facility] #[id number], 167, cm, 03/11/22 15:49:00 EDT, Height/Length Dosing, 108.86, kg, 03/11/22 15:49:00 EDT, Weight Dosing Start Date: 04/04/22 Status: Ordered ketorolac 10 mg oral tablet 10 mg = 1 tab, Oral, QID, PRN as needed for pain, not to exceed 40 mg/day and 5 days duration for all dose forms, # 12 tab, 0 Refill(s), Pharmacy: [facility] #[id number], 167, cm, 03/11/22 15:49:00 EDT, Height/Length Dosing, 108.86, kg, 03/11/22... Start Date: 03/11/22 Status: Ordered montelukast 0 Refill(s) Start Date: 04/04/22 Status: Ordered NovoLOG Mix 70/30 FlexPen subcutaneous suspension 7 units, Subcutaneous, BID, # 3 mL, 0 Refill(s), Pharmacy: [facility] #[id number], 167, cm, 03/11/22 15:49:00 EDT, Height/Length Dosing, 108.86, kg, 03/11/22 15:49:00 EDT, Weight Dosing Start Date: 04/04/22 Status: Ordered Tresiba 100 units/mL subcutaneous solution 10 units =, Subcutaneous, Daily, # 15 mL, 0 Refill(s), Pharmacy: [facility] #[id number], 167, cm, 03/11/22 15:49:00 EDT, Height/Length Dosing, 108.86, kg, 03/11/22 15:49:00 EDT, Weight Dosing Start Date: 04/04/22 Status: Ordered Tresiba FlexTouch 100 units/mL subcutaneous solution 40 units =, 0 Refill(s) Start Date: 03/11/22 Status: Ordered Problem List Condition Confirmation Course Effective Dates Status Health St [facility] Informant Chronic back pain Confirmed Active Diabetes Confirmed Active Neuropathy Confirmed Active Vital Signs Most recent to oldest [Reference Range]: 1 Temperature Tympanic [36.6-37.9 Deg C] 3 6.3 Deg C *LOW* (04/04/22 9:25 AM) Peripheral Pulse Rate [60-100 bpm] 69 bp m (04/04/22 9:25 AM) Blood Pressure [90-140/60-90 mmHg] 147/1 06mmHg *HI* (04/04/22 9:25 AM) Weight 112.49 kg (04/04/22 9:25 AM) Weight Measured (lbs) 247.998 lb (04/04/22 9:25 AM) Height 167.64 cm (04/04/22 9:25 AM) Height/Length Measured (inches) 66 inch (04/04/22 9:25 AM) BSA Measured 2.29 m2 (04/04/22 9:25 AM) Body Mass Index 40.03 kg/m2 (04/04/22 9:25 AM) Social History Social History Type Response Smoking Status Smoking tobacco use: Current everyday tobacco user;Never; Number used per day: 20; entered on: 03/11/22 Sex Hospital Discharge Instructions Patient Education 04/04/2022 09:01:09 Hyperglycemia Hyperglycemia Hyperglycemia occurs when the level of sugar (glucose) in the blood is too high. Glucose is a type of sugar that provides the body's main source of energy. Certain hormones (insulin and glucagon) control the level of glucose in the blood. Insulin lowers blood glucose, and glucagon increases blood glucose. Hyperglycemia can result from not having enough insulin in the bloodstream, or from the bodynot responding normally to insulin. Hyperglycemia occurs most often in people who have diabetes (diabetes mellitus), but it can happen in people who do not have diabetes. It can develop quickly, and it can be life-threatening if it causes you to become severely dehydrated (diabetic ketoacidosis or hyperglycemic hyperosmolar state). Severe hyperglycemia is a medical emergency. For most people with diabetes, a blood glucose level above 240 mg/dL is considered hyperglycemia. What are the causes? If you have diabetes, hyperglycemia may be caused by: ??? Medicines that increase blood glucose or affect your diabetes control. ??? Getting less physical activity. ??? Eating more than planned. ??? Being sick or injured, having an infection, or having surgery. ??? Stress. ??? Not giving yourself enough insulin (if you are taking insulin). If you have undiagnosed diabetes, this may be the reason you have hyperglycemia. If you do not have diabetes, hyperglycemia may be caused by: ??? Certain medicines, including: ??? Steroid medicines. ??? Beta-blockers. ??? Epinephrine. ??? Thiazide diuretics. ??? Stress. ??? Having a serious illness, an infection, or surgery. ??? Diseases of the pancreas. What increases the risk? Hyperglycemia is more likely to develop in people who have risk factors for diabetes, such as: ??? Having a family member with diabetes. ??? Certain conditions in which the body's disease-fighting system (immune system) attacks itself (autoimmune disorders). ??? Being overweight or obese. ??? Having an inactive (sedentary) lifestyle. ??? Having been diagnosed with insulin resistance. ??? Having a history of prediabetes, gestational diabetes, or polycystic ovarian syndrome (PCOS). What are the signs or symptoms? Hyperglycemia may not cause any symptoms. If you do have symptoms, they may include: ??? Increased thirst. ??? Needing to urinate more often than usual. ??? Hunger. ??? Feeling very tired. ??? Blurry vision. Other symptoms may develop if hyperglycemia gets worse, such as: ??? Dry mouth. ??? Abdominal pain. ??? Loss of appetite. ??? Fruity-smelling breath. ??? Weakness. ??? Unexpected weight loss. ??? Tingling or numbness in the hands or feet. ??? Headache. ??? Cuts or bruises that are slow to heal. How is this diagnosed? Hyperglycemia is diagnosed with a blood test to measure your blood glucose level. This blood test is usually done while you are having symptoms. Your health care provider may also do a physical exam and review your medical history. You may have more tests to determine the cause of your hyperglycemia, such as: ??? A fasting blood glucose (FBG) test. You will not be allowed to eat (you will fast) for at least8 hours before a blood sample is taken. ??? An A1C blood test. This provides information about blood glucose control over the previous 2???3 months. ??? An oral glucose tolerance test (OGTT). This measures your blood glucose at two times: ??? After fasting. This is your baseline blood glucose level. ??? 2 hours after drinking a beverage that contains glucose. How is this treated? Treatment depends on the cause of your hyperglycemia. Treatment may include: ??? Taking medicine to regulate your blood glucose levels. If you take insulin or other diabetes medicines, your medicine or dosage may be adjusted. ??? Lifestyle changes, such as exercising more, eating healthier foods, or losing weight. ??? Treating an illness or infection. ??? Checking your blood glucose more often. ??? Stopping or reducing steroid medicines. If your hyperglycemia becomes severe and it results in diabetic ketoacidosis or hyperglycemic hyperosmolar state, you must be hospitalized and given IV fluids and IV insulin. Follow these instructions at home: General instructions ??? Take [id number]-[id number] and prescription medicines only as told by your health care provider. ??? Do not use any products that contain nicotine or tobacco. These products include cigarettes, chewing tobacco, and vaping devices, such as e-cigarettes. If you need help quitting, ask your health care provider. ??? If you drink alcohol: ??? Limit how much you have to: ??? 0???1 drink a day for women who are not . ??? 0???2 drinks a day for men. ??? Know how much alcohol is in a drink. In the [place] one drink equals one 12 oz bottle of beer (355 mL), one 5 oz glass of wine (148 mL), or one 1?? oz glass of hard liquor (44 mL). ??? Learn to manage stress. If you need help with this, ask your health care provider. ??? Do exercises as told by your health care provider. ??? Keep all follow-up visits. This is important. Eating and drinking ??? Maintain a healthy weight. ??? Stay hydrated, especially when you exercise, get sick, or spend time in hot temperatures. ??? Drink enough fluid to keep your urine pale yellow. If you have diabetes: ??? Know the symptoms of hyperglycemia. ??? Follow your diabetes management plan as told by your health care provider. Make sure you: ??? Take your insulin and medicines as told. ??? Follow your exercise plan. ??? Follow your meal plan. Eat on time, and do not skip meals. ??? Check your blood glucose as often as told. Make sure to check your blood glucose before and after exercise. If you exercise longer or in a different way, check your blood glucose more often. ??? Follow your sick day plan whenever you cannot eat or drink normally. Make this plan in advance with your health care provider. ??? Share your diabetes management plan with people in your workplace, school, and household. ??? Check your urine for ketones when you are ill and as told by your health care provider. ??? Carry a medical alert card or wear medical alert jewelry. Where to find more information [place] [employer]: www.diabetes.org Contact a health care provider if: ??? Your blood glucose is at or above 240 mg/dL (13.3 mmol/L) for 2 days in a row. ??? You have problems keeping your blood glucose in your target range. ??? You have frequent episodes of hyperglycemia. ??? You have signs of illness, such as nausea, vomiting, or fever. Get help right away if: ??? Your blood glucose monitor reads high even when you are taking insulin. ??? You have trouble breathing. ??? You have a change in how you think, feel, or act (mental status). ??? You have nausea or vomiting that does not go away. These symptoms may represent a serious problem that is an emergency. Do not wait to see if the symptoms will go away. Get medical help right away. Call your local emergency services (911 in the [place] Do not drive yourself to the hospital. Summary ??? Hyperglycemia occurs when the level of sugar (glucose) in the blood is too high. ??? Hyperglycemia can happen with or without diabetes, and severe hyperglycemia can be life-threatening. ??? Hyperglycemia is diagnosed with a blood test to measure your blood glucose level. This blood test is usually done while you are having symptoms. Your health care provider may also do a physical exam and review your medical history. ??? If you have diabetes, follow your diabetes management plan as told by your health care provider. ??? Contact your health care provider if you have problems keeping your blood glucose in your target range. This information is not intended to replace advice given to you by your health care provider. Make sure you discuss any questions you have with your health care provider. Document Revised: 02/16/2021 Document Reviewed: 02/16/2021 [employer] Patient Education ?? 2021 [employer] Physician Outpatient Note * Lyndsey Johnston, MANAGER BUSINESS SYSTEM[employer]: PERFORM Event Display: Office Clinic Note Physician Authored Date: [id number] BREANNA MEDINA :1980 Age:41 years Sex:Female Visit Date:04/04/2022 Chief Complaint pt reports that she moved here in december and is on her last insulin pen - 50 units left pt states she has been waiting on insurance pt reports she is considered uncontrolled diabetic also mentioned she has not been on her mental health medications History of Present Illness Patient is a 41-year-old female who presents today??for??a refill of some of her diabetic medications. ??She reports she??has recently located here at the end of the summer, she is working on establishing??primary care??and is a type II diabetic.?She reports she has been monitoring her blood sugar has been in good control.?She states he has been in her normal state of health??minus??chronicpain issues. Physical Exam Vitals & Measurements T:??36.3?C ??(Tympanic)?? HR:??69??(Peripheral)?? BP:??147/106?? SpO2:??98%?? HT:??167.64??cm?? WT:??112.49??kg?? BMI:??40.03?? Pain Score:??10?? BSA:??2.29?? General: Well-appearing, no acute distress, alert and oriented x3. Skin: No concerning lesions in examined areas. Head: Normal cephalic without trauma or injury. Neck: Supple, nontender, normal range of motion Eye: Pupils reactive. ??Conjunctiva clear. Sclera nonicteric. ??No swelling, obvious foreign bodies. ??Extraocular movement intact. Cardiovascular: Regular rate and rhythm. ??No murmur, rubs, or gallops. Respiratory: Clear to auscultation bilaterally. ??No wheezes, rales, rhonchi. Chest: No deformity. ??Nontender, normal inspiration and expiration. Abdomen: Soft, nontender. ??No peritoneal signs, rigidity, guarding. ??No CVA tenderness. Musculoskeletal: Normal range of motion the large joints without joint swelling. ??Gait normal. Mental status: Normal mentation, normal interaction, good cognitive functioning, good executive functioning, alert and oriented x3. Assessment/Plan 1.??Diabetes??E11.9 Patient was provided refills of her diabetic agents??and??reiterated the importance of establishingprimary care. Orders: Jardiance 10 mg oral tablet, 10 mg = 1 tab, Oral, every morning, # 30 tab, 0 Refill(s), Pharmacy: [facility] #[id number], 167, cm, 03/11/22 15:49:00 EDT, Height/Length Dosing, 108.86, kg, 03/11/22 15:49:00 EDT, Weight Dosing gabapentin 100 mg oral capsule, 100 mg = 1 cap, Oral, TID, # 90 cap, 0 Refill(s) glimepiride 4 mg oral tablet, 4 mg = 1 tab, Oral, Daily, # 90 tab, 0 Refill(s), Pharmacy: [facility] #[id number], 167, cm, 03/11/22 15:49:00 EDT, Height/Length Dosing, 108.86, kg, 03/11/22 15:49:00 EDT, Weight Dosing NovoLOG Mix 70/30 FlexPen subcutaneous suspension, 7 units, Subcutaneous, BID, # 3 mL, 0 Refill(s),Pharmacy: [facility] #[id number], 167, cm, 03/11/22 15:49:00 EDT, Height/Length Dosing, 108.86, kg, 03/11/22 15:49:00 EDT, Weight Dosing Basaglar KwikPen 100 units/mL subcutaneous solution, 10 units =, Subcutaneous, every night at bedtime, # 10 mL, 0 Refill(s), Pharmacy: [facility] #[id number], 167, cm, 03/11/22 15:49:00 EDT, Height/Length Dosing, 108.86, kg, 03/11/22 15:49:00 EDT, Weight Dosing 1 box, 1 box, Supply, 1 EA, N/A, As Directed, PRN As needed, # 100 EA, 13 Refill(s), Pharmacy: [facility] #[id number] Patient Education Hyperglycemia Problem List/Past Medical History Ongoing Chronic back pain Diabetes Neuropathy Historical No qualifying data Medications 1 box, 1 EA, N/A, As Directed, PRN, 13 refills Basaglar KwikPen 100 units/mL subcutaneous solution Basaglar KwikPen 100 units/mL subcutaneous solution, 10 units, Subcutaneous, every night at bedtime gabapentin 100 mg oral capsule, 100 mg= 1 cap, Oral, TID glimepiride 4 mg oral tablet, 4 mg= 1 tab, Oral, Daily glimepiride 4 mg oral tablet, 4 mg= 1 tab, Oral, Daily Jardiance 10 mg oral tablet, 10 mg= 1 tab, Oral, every morning Jardiance 10 mg oral tablet, 10 mg= 1 tab, Oral, every morning ketorolac 10 mg oral tablet, 10 mg= 1 tab, Oral, QID, PRN montelukast NovoLOG Mix 70/30 FlexPen subcutaneous suspension, 7 units, Subcutaneous, BID Tresiba 100 units/mL subcutaneous solution, 10 units, Subcutaneous, Daily Tresiba FlexTouch 100 units/mL subcutaneous solution, 40 units Allergies Tomatoes dapagliflozin sulfamethoxazole-trimethoprim Social History Electronic Cigarette/Vaping Electronic Cigarette Use: Never. Tobacco Current everyday tobacco user Tobacco Use:. 20 per day. Never Smokeless Tobacco use:. Electronically Signed on 04/04/22 05:24 PM Lyndsey Johnston, MANAGER BUSINESS SYSTEMS
[2022-08-20 13:59] LABS: Bilirubin Negative (Negative); Blood Negative (Negative); Clarity Clear (Clear); Glucose 500 mg/dL (Negative); Ketones 15 mg/dL (Negative); Leukocyte Esterase Negative (Negative); Nitrite Negative (Negative); Specific Gravity >= 1.030 (1.005-1.025); Urobilinogen 0.2 mg/dL (Up to 0.2); pH 5.5 (5-8)
[2022-08-20] MEDS: Normal Saline 1,000 ML 1000 ML IV (14:06)
--- NOTE | 2022-08-20 14:07 | W.ED.GENAD ---
Discharge Plan Disposition Patient Disposition: Home Condition: Improving Discharge Details Clinical Impression: Gastroenteritis Primary Care Provider: James Wright ED Provider: Wojciech Stevenson Home Meds and New Rx's Prescriptions: New ondansetron 4 mg tablet,disintegrating 4 mg PO Q8H PRN (Reason: nausea and vomiting) 3 Days Qty: 9 0RF No Action Jardiance 10 mg tablet 10 mg PO DAILY Qty: 90 3RF glimepiride 4 mg tablet 4 mg PO DAILY Qty: 90 3RF insulin degludec [Tresiba U-100 Insulin] 100 unit/mL solution 40 unit subcut QAM 30 Days Qty: 36 3RF Linzess 72 mcg capsule 72 mcg PO DAILY Qty: 90 3RF (DME) pen needle, diabetic [Pen Needle] 29 gauge x 1/2 needle 1 ea Miscellaneous TID Qty: 90 3RF Rx Instructions: 31 gauge x5/16 Once daily (DME) FreeStyle Andreia 2 [place] Misc See Rx Instructions .Route Qty: 1 3RF Rx Instructions: As directed montelukast 10 mg tablet 10 mg PO DAILY Qty: 90 3RF (DME) FreeStyle Andreia 2 Sensor Kit See Rx Instructions .Route Qty: 1 3RF Rx Instructions: As directed metoclopramide HCl 10 mg tablet 10 mg PO QAC Qty: 90 2RF Rx Instructions: administer 30 minutes before meals albuterol sulfate 90 mcg/actuation HFA aerosol inhaler 2 puff inhalation Q6H PRN (Reason: shortness of breath or wheezing) Qty: 8.5 0RF haloperidol 1 mg tablet 1 mg PO BID Qty: 60 1RF mirtazapine 15 mg tablet 15 mg PO QHS Qty: 30 1RF venlafaxine 150 mg capsule,extended release 24hr 150 mg PO QAM Qty: 30 1RF prazosin 2 mg capsule 2 mg PO QHS Qty: 30 1RF cyclobenzaprine 10 mg tablet 10 mg PO TID PRN (Reason: muscle spasm) Qty: 90 1RF insulin degludec [Tresiba FlexTouch U-100] 100 unit/mL (3 mL) insulin pen 40 unit SUBCUT DAILY Patient Comments: INJECT 40 UNITS SUBCUTANEOUSLY EVERY MORNING FOR 1 MONTH gabapentin [Neurontin] 600 MG tablet 600 mg PO TID Discharge Instructions Instructions: Gastroenteritis (ED) Medical Decision Making 41-year-old female history of diabetes presents with nausea vomiting diarrhea over the past day exposed to multiple people that have a GI virus with similar symptoms. No active vomiting no active diarrhea. Hemodynamically stable afebrile abdomen soft nontender nondistended patient is a diabetic her blood sugar was 135 on arrival. Likely resolving gastroenteritis with component of dehydration low suspicion for DKA or hyperosmolar state. We will also screen for UTI electrolyte abnormalities. Trial of fluids antiemetics close reassessment 15: 04 patient resting comfortably no vomiting. Labs largely unremarkable. HPI General Date/Time Provider Initiated Documentation: 08/20/22 13:08. HPI Narrative: 41-year-old female history of diabetes presents with nausea vomiting and diarrhea over the last day, was exposed to her family members who had similar symptoms within the last week, denies abdominal pain. No chest pain or trouble breathing. Has had liquid stool today Related Data Home Medications Medication Instructions Recorded Confirmed gabapentin 600 mg tablet 600 mg PO TID 12/08/17 08/20/22 (Neurontin) empagliflozin 10 mg tablet 10 mg PO DAILY #90 tabs 05/03/22 08/20/22 (Jardiance) glimepiride 4 mg tablet 4 mg PO DAILY #90 tabs 05/03/22 08/20/22 insulin degludec 100 unit/mL 40 unit (0.4 mL) subcut QAM 1 05/03/22 08/20/22 subcutaneous solution (Tresiba month #36 mL U-100 Insulin) linaclotide 72 mcg capsule 72 mcg PO DAILY #90 caps 05/03/22 08/20/22 (Linzess) pen needle, diabetic 29 gauge x ##90 05/03/22 08/20/22/ (Pen Needle) albuterol sulfate 90 mcg/actuation 2 puff inhalation Q6H PRN 07/17/22 08/20/22 aerosol inhaler shortness of breath or wheezing #8.5 grams cyclobenzaprine 10 mg tablet 10 mg PO TID PRN muscle spasm #90 07/18/22 08/20/22 tabs flash glucose scanning reader #1 ea 08/02/22 08/02/22 (FreeStyle Andreia 2 [place]) flash glucose sensor (FreeStyle #1 ea 08/02/22 08/20/22 Andreia 2 Sensor kit) metoclopramide HCl 10 mg tablet 10 mg PO QAC #90 tabs 08/02/22 08/20/22 montelukast 10 mg tablet 10 mg PO DAILY #90 tabs 08/02/22 08/20/22 haloperidol 1 mg tablet 1 mg PO BID #60 tabs 08/15/22 08/20/22 mirtazapine 15 mg tablet 15 mg PO QHS #30 tabs 08/15/22 08/20/22 prazosin 2 mg capsule 2 mg PO QHS #30 caps 08/15/22 08/20/22 venlafaxine 150 mg 150 mg PO QAM #30 caps 08/15/22 08/20/22 capsule,extended release 24 hr insulin degludec 100 unit/mL (3 40 unit subcut DAILY 08/20/22 08/20/22 mL) subcutaneous pen (Tresiba FlexTouch U-100 insulin) ondansetron 4 mg disintegrating 4 mg PO Q8H PRN nausea and 08/20/22 tablet vomiting 3 days #9 tabs Previous Rx's Medication Instructions Recorded empagliflozin 10 mg tablet 10 mg PO DAILY #90 tabs 05/03/22 (Jardiance) glimepiride 4 mg tablet 4 mg PO DAILY #90 tabs 05/03/22 insulin degludec 100 unit/mL 40 unit (0.4 mL) subcut QAM 1 05/03/22 subcutaneous solution (Tresiba month #36 mL U-100 Insulin) linaclotide 72 mcg capsule 72 mcg PO DAILY #90 caps 05/03/22 (Linzess) pen needle, diabetic 29 gauge x ##90 05/03/22 1 (Pen Needle) albuterol sulfate 90 mcg/actuation 2 puff inhalation Q6H PRN 07/17/22 aerosol inhaler shortness of breath or wheezing #8.5 grams cyclobenzaprine 10 mg tablet 10 mg PO TID PRN muscle spasm #90 07/18/22 tabs flash glucose scanning reader #1 ea 08/02/22 (FreeStyle Andreia 2 [place]) flash glucose sensor (FreeStyle #1 ea 08/02/22 Andreia 2 Sensor kit) metoclopramide HCl 10 mg tablet 10 mg PO QAC #90 tabs 08/02/22 montelukast 10 mg tablet 10 mg PO DAILY #90 tabs 08/02/22 haloperidol 1 mg tablet 1 mg PO BID #60 tabs 08/15/22 mirtazapine 15 mg tablet 15 mg PO QHS #30 tabs 08/15/22 prazosin 2 mg capsule 2 mg PO QHS #30 caps 08/15/22 venlafaxine 150 mg 150 mg PO QAM #30 caps 08/15/22 capsule,extended release 24 hr ondansetron 4 mg disintegrating 4 mg PO Q8H PRN nausea and 08/20/22 tablet vomiting 3 days #9 tabs Allergies Allergy/AdvReac Type Severity Reaction Status Date / Time fluconazole Allergy Unknown Unverified 08/20/22 12:45 sulfamethoxazole Allergy Verified 08/20/22 12:45 [From Bactrim] trimethoprim [From Bactrim] Allergy Verified 08/20/22 12:45 tomato AdvReac Intermediate severe Unverified 08/20/22 12:45 migraines/abd cramping/diarrhea dapagliflozin AdvReac Verified 08/20/22 12:45 General Stated Complaint: Nausea/Vomit/Diar DERRELL: 3 Review of Systems Narrative: Review of Systems Constitutional: negative Eyes: negative ENT: negative Cardiovascular: negative Respiratory: negative Gastrointestinal: Nausea vomiting diarrhea : negative Musculoskeletal: negative Skin: negative Neurologic: negative Psych: negative PFSH All Active Problems (Updated 08/20/22 @ 15:08 by Wojciech Stevenson MD) Gastroenteritis (Acute) Cervical disc disease (Acute) Lumbar facet joint syndrome (Acute) Hyperglycemic crisis in diabetes mellitus (Acute) B12 deficiency (Acute) Memory loss of unknown cause (Acute) Hypertension (Chronic) Low back pain (Acute) Neuropathy (Acute) Borderline personality disorder (Acute) PTSD (post-traumatic stress disorder) (Acute) Bipolar 2 disorder, major depressive episode (Acute) Type 2 diabetes mellitus not at goal (Acute) Gastroparesis (Acute) Medical History (Updated 08/20/22 @ 15:08 by Wojciech Stevenson MD) COVID-19 Furuncle of labia majora Surgical History H/O total hysterectomy Hx of section x3 Family History Mother Alcohol use disorder Father Alcohol use disorder Brother No problems noted. Son Depression Son Depression Daughter Depression Daughter No problems noted. Social History (Updated 08/02/22 @ 12:31 by Suni Chaudhary) Smoking/Tobacco Use Status: Current every day Tobacco Type: cigarettes Tobacco: How many years used: 25 Quit status: considering quitting Second Hand Exposure: Yes Smoking risk assessment performed?: Yes Alcohol Intake: never Drug use: Daily Substance use type: marijuana Caregiver/Support person: No Household members: significant other, family and children Housing: house Communication Needs: None Do you need help understanding health information?: Always Pets and animals: Yes Pets and animals: dog(s) Sexually active: Yes Do you think of yourself as: straight/heterosexual Current gender identity: female How often do you talk on the phone with friends or family?: never How often do you get together with friends or relatives?: never How often do you attend muslim or rastafari services?: 4 or more times per year Do you belong to any clubs or organized social groups?: no Panel score (0-1 are the most socially isolated patients): 1 What type of physical activity do you participate in: none Frequency: does not exercise Marie/Sikhism: None Special marie needs: No Seatbelt use: always Helmet use: Yes Helmet use: always Drive intox or ride w/intox motor coach bus driver: No Do you feel safe at home: Yes Do you feel safe in your relationship?: Yes Exam Narrative Exam Narrative: Physical Examination General: alert, awake, cooperative, uncomfortable appearing HEENT: normocephalic, atraumatic; PERRL, EOM intact, conjunctiva normal; no nasal discharge; moist mucous membranes, oral and pharyngeal mucosa normal, tolerating secretions Neck: supple, trachea midline; full ROM Chest: normal to inspection Respiratory: normal respiratory effort, speaking in full sentences, clear to auscultation, no wheezing, rales or rhonchi Cardiac: regular rate, regular rhythm, S1S2 intact, no murmurs rubs or gallops GI: abdomen soft, non-tender, non-distended; no palpable mass or hepatosplenomegaly Skin: no lesions, rashes or trauma appreciated Neuro: AAOx3, normal speech, moving all extremities Psych: Appropriate mood and affect Course Vital Signs Vital signs: Vital Signs Temperature 36.9 C 08/20/22 12:47 Pulse 99 H 08/20/22 12:47 Respiratory Rate 18 08/20/22 12:47 Blood Pressure 139/81 08/20/22 12:47 Pulse Oximetry 96 08/20/22 12:47 Temperature 36.9 C 08/20/22 12:47 Temperature Source Tympanic 08/20/22 12:47 Pulse 99 H 08/20/22 12:47 Respiratory Rate 18 08/20/22 12:47 Respiratory Effort Normal, Non-Labored 08/20/22 12:45 Blood Pressure 139/81 08/20/22 12:47 Pulse Oximetry 96 08/20/22 12:47 Oxygen Delivery Method Room Air 08/20/22 12:47 Oxygen Flow Rate 0 08/20/22 12:47 Lab/Test Results Lab/Test Results: Laboratory Tests Range/Units 08/20/22 13:43 Urine Color (Yellow) Yellow Urine Clarity (Clear) Clear Urine pH (5-8) 5.5 Ur Specific [place] (1.005-1.025) >= 1.030 H Urine Protein (Negative) mg/dL Negative Urine Ketones (Negative) mg/dL 15 H Urine Blood (Negative) Negative Urine Nitrite (Negative) Negative Urine Bilirubin (Negative) Negative Urine Urobilinogen (Up to 0.2) mg/dL 0.2 Ur Leukocyte Esterase (Negative) Negative Urine Glucose (Negative) mg/dL 500 H POC- Test(urine) Negative
[2022-08-20 14:09] LABS: Abs Immature Grans 0.03 10^3/uL (0.0-0.06); Absolute Basophil Count 0.04 10^3/uL (0.0-0.2); Absolute Eosinophil Count 0.07 10^3/uL (0.0-0.7); Absolute Lymphocyte Count 1.03 10^3/uL (1.2-3.4); Basophils % 0.3; Eosinophils % 0.6; HCT 49.1 % (36.0-46.0); HGB 16.6 g/dL (11.2-15.7); Immature Grans % 0.3; Lymphocytes % 8.8; MCH 29.6 pg (27.0-33.0); MCHC 33.8 % (32.0-36.0); MCV 88 fL (80-95); MPV 10.4 fL (8.0-11.0); Monocytes % 2.6; Neutrophils % 87.4; Platelet Count 307 10^3/uL (130-400); RDW 13.3 % (11.7-14.6); WBC 11.76 10^3/uL (4.4-10.8)
[2022-08-20] MEDS: Ondansetron 4 MG/2 ML VIAL IVP (14:09)
[2022-08-20 14:11] LABS: Absolute Monocyte Count 0.31 10^3/uL (0.1-0.8); Absolute Neutrophil Count 10.28 10^3/uL (1.2-6.7)
[2022-08-20 14:30] LABS: ALT 41 U/L (14-59); AST 21 U/L (15-37); Alkaline Phosphatase 90 U/L (46-116); Anion Gap 10.6 mmol/L (3-11); BUN 11 mg/dL (7-18); Bilirubin, Total 0.6 mg/dL (0.2-1.0); CO2 25.4 mmol/L (21.0-32.0); CREATININE 0.9 mg/dL (0.55-1.02); Calcium 9.5 mg/dL (8.5-10.1); Chloride 104 mmol/L (98-107); Glucose 139 mg/dL (74-106); Lipase 24 U/L (16-77); Potassium 3.7 mmol/L (3.5-5.1); Sodium 140 mmol/L (136-145); Total Protein 7.7 g/dL (6.4-8.2)
[2022-08-20 15:33] VITALS: BP 138/82; PULSE 86; RESP 18; TEMP 36.8; O2SAT 97
== END 2022-08-20 15:33 | disposition home or self-care (01) ==
PROVIDERS: Emergency Provider Emergency Medicine; PCP Nurse Practitioner Family
DX: K52.9 Noninfective gastroenteritis and colitis, unspecified (principal); E11.9 Type 2 diabetes mellitus without complications; Z79.4 Long term (current) use of insulin; Z86.16 Personal history of COVID-19
CPT/HCPCS: 36415; 80053; 81025; 83690; 96361; 96374; 99284; 81003; 85025; J2405

== ENCOUNTER 2023-06-27 14:54 | Outpatient (REF) | payer MEDICARE, MEDICAID, SELFPAY ==
[2023-06-27 16:34] LABS: D-Dimer 644 ng/mlFEU (<500)
== END 2023-06-27 14:55 | disposition home or self-care (01) ==
LOC: LBN 14:54
PROVIDERS: Visit Provider Physician Assistant
DX: R07.81 Pleurodynia (principal)
CPT/HCPCS: 85379

== ENCOUNTER 2023-06-27 17:55 | Emergency (ER) | payer MEDICARE, MEDICAID, SELFPAY ==
[2023-06-27 18:00] VITALS: BP 111/51; PULSE 71; RESP 23; TEMP 36.8; O2SAT 98
--- NOTE | 2023-06-27 18:15 | DI.CT_ITS ---
Exam(s) CT CHEST PE CTA EXAM: CT CHEST PE CTA CLINICAL HISTORY: chest pain. TECHNIQUE: Imaging Protocol: Axial CT angiography was performed with multi-slice acquisition and mu lti-planar reconstructions as well as axial, coronal and sagittal MIP reconstructions. CONTRAST MATERIAL: Intravenous: Omnipaque 350 Contrast volume:100 ml COMPARISON: CT CT CERVICAL SPINE WO from 05/15/[address] THORACIC LUMBAR SPINE WO from 05/15/2022 FINDINGS: Pulmonary Arteries: No evidence of filling defect to suggest pulmonary emboli. Tracheobronchial tree: No mucous plugging. Mediastinum and Frances: No dominant adenopathy or fluid collection. Pulmonary parenchyma: Evaluation limited due to expiratory changes and mild respiratory motion. 14 m illimeter solid-appearing opacity at the left lung apex. Pleura: No effusion or pneumothorax. Heart: The heart is not dilated. No coronary artery calcifications are seen. Aorta: Thoracic aorta non-dilated. No dissection. Upper abdomen: No acute findings. Bones: Unremarkable for age. Tubes, Catheters, and Lines: None Soft tissues: Unremarkable. IMPRESSION: No evidence of pulmonary embolism. 14 millimeter nodular opacity at the left lung apex. 3 month follow-up chest CT recommended. RADIATION DOSE DELIVERED: Total DLP DATA REPOSITORY: All CT scans at this facility are submitted to the National Radiology Data Registry (NRDR) Dose Index Registry (DIR) with the [employer] (ACR). RADIATION OPTIMIZATION: All CT scans at this facility use at least one of these dose optimization te chniques: automated exposure control; mA and/or kV adjustment per patient size (includes targeted exa ms where dose is matched to clinical indication); or iterative reconstruction.
--- NOTE | 2023-06-27 18:15 | RT.EKG_ITS ---
APPROVED REPORT Exam: Resting ECG Reason for Exam: chest pain Patient Location: E HR:67 bpm ECG Measurements Heart Rate 67 AXIS MO 195 P 36 QRSd 78 QRS 62 QT 402 T 60 QTc 424 Conclusion Sinus rhythm...normal P axis, V-rate 60- 99
[2023-06-27 18:39] LABS: Abs Immature Grans 0.02 10^3/uL (0.0-0.06); Absolute Basophil Count 0.09 10^3/uL (0.0-0.2); Absolute Eosinophil Count 0.14 10^3/uL (0.0-0.7); Absolute Lymphocyte Count 2.77 10^3/uL (1.2-3.4); Absolute Monocyte Count 0.55 10^3/uL (0.1-0.8); Absolute Neutrophil Count 5.75 10^3/uL (1.2-6.7); Eosinophils % 1.5; HCT 43.5 % (36.0-46.0); HGB 14.7 g/dL (11.2-15.7); Immature Grans % 0.2; Lymphocytes % 29.7; MCH 30.4 pg (27.0-33.0); MCHC 33.8 % (32.0-36.0); MCV 90 fL (80-95); MPV 10.3 fL (8.0-11.0); Monocytes % 5.9; Neutrophils % 61.7; Platelet Count 304 10^3/uL (130-400); RBC 4.84 10^6/uL (3.93-5.22); RDW 12.9 % (11.7-14.6); RDW-SD 42.6 fL; WBC 9.32 10^3/uL (4.4-10.8)
[2023-06-27 18:42] VITALS: BP 111/71; PULSE 71; RESP 22; TEMP 36.6; O2SAT 98
[2023-06-27] MEDS: Omnipaque 350 MG/ML 100 ML BTL IJ (18:50)
[2023-06-27] MEDS: Normal Saline - Diluent 50 ML VIAL IJ (18:53)
[2023-06-27] MEDS: Normal Saline Flush 10 ML SYR IVP (19:00)
[2023-06-27 19:02] LABS: ALT 43 U/L (14-59); AST 15 U/L (15-37); Albumin 3.6 g/dL (3.4-5.0); Alkaline Phosphatase 88 U/L (46-116); Anion Gap 10.7 mmol/L (3-11); BUN 11 mg/dL (7-18); Bilirubin, Total 0.4 mg/dL (0.2-1.0); CO2 28.3 mmol/L (21.0-32.0); CREATININE 0.9 mg/dL (0.55-1.02); Calcium 9.4 mg/dL (8.5-10.1); Chloride 102 mmol/L (98-107); Estimated GFR 82.88 (mL/min/1.73m2); Glucose 151 mg/dL (74-106); Magnesium 2.1 mg/dL (1.8-2.4); Potassium 3.7 mmol/L (3.5-5.1); Sodium 141 mmol/L (136-145); Total Protein 7.3 g/dL (6.4-8.2)
[2023-06-27 19:10] LABS: Troponin I < 50 ng/L (< or =60)
--- NOTE | 2023-06-27 19:20 | DI.VRAD_ITS ---
PROCEDURE INFORMATION: Exam: CTA Chest With Contrast Exam date and time: 06/27/2023 6:50 PM Age: 42 years old Clinical indication: Chest wall pain; Additional info: Chest pain TECHNIQUE: Imaging protocol: Computed tomographic angiography of the chest with contrast. Exam focused on the arteries. 3D rendering (Not supervised by radiologist): MIP and/or 3D reconstructed images were created by the technologist. Contrast material: OMNI 350; Contrast volume: 100 ml; Contrast route: INTRAVENOUS (IV); COMPARISON: CT CERVICAL SPINE WO 05/15/2022 5:13 PM FINDINGS: Pulmonary arteries: No pulmonary emboli. Aorta: No aortic aneurysm. No aortic dissection. Lungs: Scattered mild air trapping in the lungs. 17 mm consolidative or nodular lesion, left lung apex. Pleural spaces: No pneumothorax. No pleural effusion. Heart: No cardiomegaly. No pericardial effusion. Lymph nodes: No enlarged lymph nodes. Bones/joints: No acute fracture. Soft tissues: No suspicious lesions. IMPRESSION: 1. Pulmonary air trapping, likely small airways disease. 2. 17 mm consolidative or nodular lesion, left lung apex. Unclear if this is a minuscule pneumonia or pulmonary nodule with follow-up warranted. Dictated and Authenticated by: Ludmila Lima MD. Ordering:ARIK Palafox MD
--- NOTE | 2023-06-27 20:10 | W.ED.GENAD ---
HPI General Mode of arrival: ambulatory. Date/Time Provider Initiated Documentation: 06/27/23 18:08. Limitations to Documentation: no limitations. Information obtained by: patient. HPI Narrative: 42-year-old female here multiple medical problems including history of diabetes, smoker, bipolar 2 disorder, presents tonight with chief complaint of left shoulder pain radiating down her left arm and also to her left neck. Pain feels like someone is stabbing her in the shoulder blade. Pain is sharp. Pain worse with movement and with deep breaths. Patient does note chronic cough, worse over the past 1 week. Patient was seen at [facility] and had a positive D-dimer and was sent to the ED for further evaluation. Patient denies associated leg pain or swelling. No nausea. No fever. Related Data Home Medications Medication Instructions Recorded Confirmed insulin degludec 100 unit/mL 40 unit (0.4 mL) subcut QAM 1 05/03/22 06/27/23 subcutaneous solution (Tresiba month #36 mL U-100 Insulin) albuterol sulfate 90 mcg/actuation 2 puff inhalation Q6H PRN 09/06/22 06/27/23 aerosol inhaler shortness of breath or wheezing #8.5 grams blood sugar diagnostic (OneTouch #100 ea 09/06/22 Ultra Test strips) blood-glucose meter (OneTouch #1 ea 09/06/22 Ultra2 Meter kit) empagliflozin 10 mg tablet 10 mg PO DAILY #90 tabs 09/06/22 06/27/23 (Jardiance) gabapentin 600 mg tablet 600 mg PO TID #270 tabs 09/06/22 06/27/23 (Neurontin) glimepiride 4 mg tablet 4 mg PO DAILY #90 tabs 09/06/22 06/27/23 haloperidol 1 mg tablet 1 mg PO BID #180 tabs 09/06/22 06/27/23 insulin degludec 100 unit/mL (3 40 unit (0.4 mL) subcut DAILY #36 09/06/22 06/27/23 mL) subcutaneous pen (Tresiba mL FlexTouch U-100 insulin) lancets 33 gauge (BD Ultra Fine #100 ea 09/06/22 Lancets) linaclotide 72 mcg capsule 72 mcg PO DAILY #90 caps 09/06/22 06/27/23 (Linzess) mirtazapine 15 mg tablet 15 mg PO QHS #90 tabs 09/06/22 06/27/23 montelukast 10 mg tablet 10 mg PO DAILY #90 tabs 09/06/22 06/27/23 pen needle, diabetic 29 gauge x ##90 09/06/22 1/2 (Pen Needle) prazosin 2 mg capsule 2 mg PO QHS #90 caps 09/06/22 06/27/23 venlafaxine 150 mg 300 mg (2 x 150 mg) PO DAILY #180 09/12/22 06/27/23 capsule,extended release 24 hr caps doxycycline hyclate 100 mg capsule 100 mg PO BID #9 caps 06/27/23 Previous Rx's Medication Instructions Recorded insulin degludec 100 unit/mL 40 unit (0.4 mL) subcut QAM 1 05/03/22 subcutaneous solution (Tresiba month #36 mL U-100 Insulin) albuterol sulfate 90 mcg/actuation 2 puff inhalation Q6H PRN 09/06/22 aerosol inhaler shortness of breath or wheezing #8.5 grams blood sugar diagnostic (OneTouch #100 ea 09/06/22 Ultra Test strips) blood-glucose meter (OneTouch #1 ea 09/06/22 Ultra2 Meter kit) empagliflozin 10 mg tablet 10 mg PO DAILY #90 tabs 09/06/22 (Jardiance) gabapentin 600 mg tablet 600 mg PO TID #270 tabs 09/06/22 (Neurontin) glimepiride 4 mg tablet 4 mg PO DAILY #90 tabs 09/06/22 haloperidol 1 mg tablet 1 mg PO BID #180 tabs 09/06/22 insulin degludec 100 unit/mL (3 40 unit (0.4 mL) subcut DAILY #36 09/06/22 mL) subcutaneous pen (Tresiba mL FlexTouch U-100 insulin) lancets 33 gauge (BD Ultra Fine #100 ea 09/06/22 Lancets) linaclotide 72 mcg capsule 72 mcg PO DAILY #90 caps 09/06/22 (Linzess) mirtazapine 15 mg tablet 15 mg PO QHS #90 tabs 09/06/22 montelukast 10 mg tablet 10 mg PO DAILY #90 tabs 09/06/22 pen needle, diabetic 29 gauge x ##90 09/06/22 1/2 (Pen Needle) prazosin 2 mg capsule 2 mg PO QHS #90 caps 09/06/22 venlafaxine 150 mg 300 mg (2 x 150 mg) PO DAILY #180 09/12/22 capsule,extended release 24 hr caps doxycycline hyclate 100 mg capsule 100 mg PO BID #9 caps 06/27/23 Allergies Allergy/AdvReac Type Severity Reaction Status Date / Time fluconazole Allergy Unknown Other (See Unverified 06/27/23 18:08 Comment) sulfamethoxazole Allergy dont Verified 06/27/23 18:08 [From Bactrim] remember trimethoprim [From Bactrim] Allergy heeadache Verified 06/27/23 18:08 tomato AdvReac Intermediate severe Unverified 06/27/23 18:08 migraines/abd cramping/diarrhea dapagliflozin AdvReac headache Verified 06/27/23 18:08 diarrhea General Stated Complaint: GenMedical DERRELL: 3 Review of Systems All systems reviewed & are unremarkable except as noted in HPI and below Constitutional Constitutional: Denies fever(s) Respiratory Respiratory: Reports as per HPI Exam Const General: cooperative and no acute distress HENMT Mouth: moist mucous membranes Eyes Conjunctivae: normal conjunctivae Sclera: normal sclerae Neck Neck: trachea midline and supple Resp Effort & Inspection: normal respiratory effort Auscultation: clear to auscultation bilaterally, no rales, no rhonchi and no wheezes Cardio Rate: regular rate and not tachycardic Rhythm: regular rhythm GI Palpation: soft, not firm, no guarding, no masses, not rigid and nontender Skin General skin exam: no rashes or lesions noted Neuro General: patient alert, patient awake and tone normal Extrem General: no edema Psych Appearance: grossly normal Mental Status: mental status grossly normal Course Vital Signs Vital signs: Vital Signs Temperature 36.8 C 06/27/23 18:00 Pulse 71 06/27/23 18:00 Respiratory Rate 23 06/27/23 18:00 Blood Pressure 111/51 L 06/27/23 18:00 Pulse Oximetry 98 06/27/23 18:00 Temperature 36.6 C 06/27/23 18:42 Temperature Source Oral 06/27/23 18:42 Pulse 71 06/27/23 18:42 Respiratory Rate 22 06/27/23 18:42 Respiratory Effort Normal, Non-Labored 06/27/23 18:42 Respiratory Depth Normal 06/27/23 18:42 Respiratory Pattern Normal 06/27/23 18:42 Blood Pressure 111/71 06/27/23 18:42 Pulse Oximetry 98 06/27/23 18:42 Oxygen Delivery Method Room Air 06/27/23 18:42 Pain Level 8 06/27/23 18:42 Lab/Test Results Lab/Test Results: Laboratory Tests Range/Units 06/27/23 18:31 WBC (4.4-10.8) 10^3/uL 9.32 RBC (3.93-5.22) 10^6/uL 4.84 Hgb (11.2-15.7) g/dL 14.7 Hct (36.0-46.0) % 43.5 MCV (80-95) fL 90 MCH (27.0-33.0) pg 30.4 MCHC (32.0-36.0) % 33.8 RDW (11.7-14.6) % 12.9 Plt Count (130-400) 10^3/uL 304 MPV (8.0-11.0) fL 10.3 Immature Gran % 0.2 Neutrophils % 61.7 Lymphocytes % 29.7 Monocytes % 5.9 Eosinophils % 1.5 Basophils % 1.0 Nucleated RBC % (0.0-0.3) % 0.0 Absolute Neutrophils (1.2-6.7) 10^3/uL 5.75 Absolute Lymphocytes (1.2-3.4) 10^3/uL 2.77 Absolute Monocytes (0.1-0.8) 10^3/uL 0.55 Absolute Eosinophils (0.0-0.7) 10^3/uL 0.14 Absolute Basophils (0.0-0.2) 10^3/uL 0.09 Sodium (136-145) mmol/L 141 Potassium (3.5-5.1) mmol/L 3.7 Chloride (98-107) mmol/L 102 Carbon Dioxide (21.0-32.0) mmol/L 28.3 Anion Gap (3-11) mmol/L 10.7 BUN (7-18) mg/dL 11 Creatinine (0.55-1.02) mg/dL 0.9 Est GFR (CKD-EPI 2020) (mL/min/1.73m2) 82.88 Glucose (74-106) mg/dL 151 H Calcium (8.5-10.1) mg/dL 9.4 Magnesium (1.8-2.4) mg/dL 2.1 Total Bilirubin (0.2-1.0) mg/dL 0.4 AST (15-37) U/L 15 ALT (14-59) U/L 43 Alkaline Phosphatase (46-116) U/L 88 Troponin I (< or =60) ng/L < 50 Total Protein (6.4-8.2) g/dL 7.3 Albumin (3.4-5.0) g/dL 3.6 Medical Decision Making 42-year-old female with history of diabetes, hypertension, borderline personality disorder, bipolar 2 disorder, here with left scapular pain rating to her left arm and neck over the past 3 days that is sharp in nature and pleuritic. Patient was seen in [facility] and had positive D-dimer. Patient is saturating well in no respiratory distress. She is hemodynamically stable. Screening EKG was reviewed and interpreted by me: Please report, sinus rhythm 67 bpm, nondiagnostic. Labs reviewed: Troponin negative. No significant electrolyte abnormalities. Presentation concerning for potential acute pulmonary embolism. CT of the chest was interpreted by radiology: Pulmonary air-trapping, likely small airway disease. 17 mm consolidative or nodular lesion, left lung apex. Unclear if this is minuscule pneumonia or pulmonary nodule with follow-up warranted. Given patient's cough recently, I will initiate treatment with doxycycline. Patient did recently have negative tuberculosis screening test within the past 6 months. Patient is a chronic smoker, consider malignancy. Patient will need follow-up imaging. Results and discharge plan were discussed with the patient. Usual customary discharge instructions were reviewed. Lab Data Lab results reviewed: Yes I reviewed the patient's lab results. Labs: Laboratory Tests Range/Units 06/27/23 18:31 WBC (4.4-10.8) 10^3/uL 9.32 RBC (3.93-5.22) 10^6/uL 4.84 Hgb (11.2-15.7) g/dL 14.7 Hct (36.0-46.0) % 43.5 MCV (80-95) fL 90 MCH (27.0-33.0) pg 30.4 MCHC (32.0-36.0) % 33.8 RDW (11.7-14.6) % 12.9 Plt Count (130-400) 10^3/uL 304 MPV (8.0-11.0) fL 10.3 Immature Gran % 0.2 Neutrophils % 61.7 Lymphocytes % 29.7 Monocytes % 5.9 Eosinophils % 1.5 Basophils % 1.0 Nucleated RBC % (0.0-0.3) % 0.0 Absolute Neutrophils (1.2-6.7) 10^3/uL 5.75 Absolute Lymphocytes (1.2-3.4) 10^3/uL 2.77 Absolute Monocytes (0.1-0.8) 10^3/uL 0.55 Absolute Eosinophils (0.0-0.7) 10^3/uL 0.14 Absolute Basophils (0.0-0.2) 10^3/uL 0.09 Sodium (136-145) mmol/L 141 Potassium (3.5-5.1) mmol/L 3.7 Chloride (98-107) mmol/L 102 Carbon Dioxide (21.0-32.0) mmol/L 28.3 Anion Gap (3-11) mmol/L 10.7 BUN (7-18) mg/dL 11 Creatinine (0.55-1.02) mg/dL 0.9 Est GFR (CKD-EPI 2020) (mL/min/1.73m2) 82.88 Glucose (74-106) mg/dL 151 H Calcium (8.5-10.1) mg/dL 9.4 Magnesium (1.8-2.4) mg/dL 2.1 Total Bilirubin (0.2-1.0) mg/dL 0.4 AST (15-37) U/L 15 ALT (14-59) U/L 43 Alkaline Phosphatase (46-116) U/L 88 Troponin I (< or =60) ng/L < 50 Total Protein (6.4-8.2) g/dL 7.3 Albumin (3.4-5.0) g/dL 3.6 Quality:SDOH Health Related Social Needs: No Data to Display PFSH All Active Problems (Updated 06/27/23 @ 20:26 by Javy Cheney MD) Lesion of left lung (Acute) Pain of left scapula (Acute) Cervical disc disease (Acute) Lumbar facet joint syndrome (Acute) Hyperglycemic crisis in diabetes mellitus (Acute) B12 deficiency (Acute) Memory loss of unknown cause (Acute) Hypertension (Chronic) Low back pain (Acute) Neuropathy (Acute) Borderline personality disorder (Acute) PTSD (post-traumatic stress disorder) (Acute) Bipolar 2 disorder, major depressive episode (Acute) Type 2 diabetes mellitus not at goal (Acute) Gastroparesis (Acute) Medical History COVID-19 Furuncle of labia majora Surgical History Hx of section x3 H/O total hysterectomy Family History Mother Alcohol use disorder Father Alcohol use disorder Brother No problems noted. Son Depression Son Depression Daughter Depression Daughter No problems noted. Social History Smoking/Tobacco Use Status: Current every day Tobacco Type: cigarettes Tobacco: How many years used: 25 Quit status: considering quitting Second Hand Exposure: Yes Smoking risk assessment performed?: Yes Alcohol Intake: never Drug use: Daily Substance use type: marijuana Caregiver/Support person: No Household members: significant other, family and children Housing: house Communication Needs: None Do you need help understanding health information?: Always Pets and animals: Yes Pets and animals: dog(s) Sexually active: Yes Do you think of yourself as: straight/heterosexual Current gender identity: female How often do you talk on the phone with friends or family?: never How often do you get together with friends or relatives?: never How often do you attend zoroastrianism or baptism services?: 4 or more times per year Do you belong to any clubs or organized social groups?: no Panel score (0-1 are the most socially isolated patients): 1 What type of physical activity do you participate in: none Frequency: does not exercise Marie/Mandaen: None Special marie needs: No Seatbelt use: always Helmet use: Yes Helmet use: always Drive intox or ride w/intox company tanker truck driver: No Do you feel safe at home: Yes Do you feel safe in your relationship?: Yes Discharge Plan Disposition Patient Disposition: Home Condition: Stable Discharge Details Clinical Impression: Pain of left scapula, Lesion of left lung Primary Care Provider: Antonio Gilbert ED Provider: Javy Cheney Home Meds and New Rx's Prescriptions: New doxycycline hyclate 100 mg capsule 100 mg PO BID Qty: 9 0RF Continued insulin degludec [Tresiba U-100 Insulin] 100 unit/mL solution 40 unit subcut QAM 30 Days Qty: 36 3RF venlafaxine 150 mg capsule,extended release 24hr 300 mg PO DAILY Qty: 180 3RF albuterol sulfate 90 mcg/actuation HFA aerosol inhaler 2 puff inhalation Q6H PRN (Reason: shortness of breath or wheezing) Qty: 8.5 3RF Jardiance 10 mg tablet 10 mg PO DAILY Qty: 90 3RF gabapentin [Neurontin] 600 mg tablet 600 mg PO TID Qty: 270 3RF glimepiride 4 mg tablet 4 mg PO DAILY Qty: 90 3RF haloperidol 1 mg tablet 1 mg PO BID Qty: 180 3RF insulin degludec [Tresiba FlexTouch U-100] 100 unit/mL (3 mL) insulin pen 40 unit SUBCUT DAILY Qty: 36 3RF Linzess 72 mcg capsule 72 mcg PO DAILY Qty: 90 3RF mirtazapine 15 mg tablet 15 mg PO QHS Qty: 90 3RF montelukast 10 mg tablet 10 mg PO DAILY Qty: 90 3RF prazosin 2 mg capsule 2 mg PO QHS Qty: 90 3RF Discontinued metoclopramide HCl 10 mg tablet 10 mg PO QAC Qty: 90 3RF Rx Instructions: administer 30 minutes before meals cyclobenzaprine 10 mg tablet 10 mg PO TID PRN (Reason: muscle spasm) Qty: 90 1RF Hold Instructions: Pt Stopped/Never Started No Action (DME) blood-glucose meter [OneTouch Ultra2 Meter] Kit See Rx Instructions .Route Qty: 1 3RF Rx Instructions: Twice daily (DME) OneTouch Ultra Test Strip See Rx Instructions .Route Qty: 100 3RF Rx Instructions: twice daily (DME) lancets [BD Ultra Fine Lancets] 33 gauge misc See Rx Instructions .Route Qty: 100 0RF Rx Instructions: twice daily (DME) pen needle, diabetic [Pen Needle] 29 gauge x 1/2 needle 1 ea Miscellaneous TID Qty: 90 3RF Rx Instructions: 31 gauge x5/16 Once daily Discharge Instructions Additional Instructions: CT imaging of your chest shows 17 mm consolidative or nodular lesion, left lung apex. It is unclear if this is a minuscule pneumonia or pulmonary nodule. Is recommended that you follow-up with your primary care physician for further outpatient diagnostic testing. Given increased cough recently, we have elected to initiate treatment with antibiotic for early pneumonia. Please complete full course of antibiotic as prescribed. Please contact your primary care physician to arrange follow-up. Call on Friday. Return to the ER immediately for any worsening or new concerning symptoms. Referrals: Antonio Gilbert [Primary Care Provider] -
[2023-06-27] MEDS: Doxycycline Hyclate 100 MG CAP PO (20:42)
[2023-06-27 21:26] LABS: Troponin I < 50 ng/L (< or =60)
[2023-06-27 21:39] VITALS: BP 120/70; PULSE 72; RESP 17; TEMP 36.8; O2SAT 98
== END 2023-06-27 21:42 | disposition home or self-care (01) ==
PROVIDERS: Emergency Provider Student in an Organized Health Care Education/Training Program; PCP Internal Medicine
DX: M25.512 Pain in left shoulder (principal); R91.8 Other nonspecific abnormal finding of lung field; E11.9 Type 2 diabetes mellitus without complications; I10 Essential (primary) hypertension; F17.210 Nicotine dependence, cigarettes, uncomplicated; Z79.4 Long term (current) use of insulin; Z79.899 Other long term (current) drug therapy
CPT/HCPCS: 71275; 80053; 93005; 99285; 83735; 84484; 85025; 93010; 99284; J3490

== ENCOUNTER 2023-11-13 09:41 | Emergency (ER) | payer MEDICARE, MEDICAID, SELFPAY ==
[2023-11-13 09:48] VITALS: BP 147/97; PULSE 71; RESP 16; TEMP 36.6; O2SAT 96
--- NOTE | 2023-11-13 10:07 | ED.GENADUL_ITS ---
Discharge Plan Disposition Patient Disposition: Eloped Condition: Stable Discharge Details Chief Complaint: Nausea/Vomit/Diar Clinical Impression: Abdominal pain of unknown cause Primary Care Provider: Leidy Gutierres ED Provider: Jasper Winslow Home Meds and New Rx's Prescriptions: No Action insulin degludec [Tresiba U-100 Insulin] 100 unit/mL solution 40 unit subcut QAM 30 Days Qty: 36 3RF venlafaxine 150 mg capsule,extended release 24hr 300 mg PO DAILY Qty: 180 3RF (DME) blood-glucose meter [OneTouch Ultra2 Meter] Kit See Rx Instructions .Route Qty: 1 3RF Rx Instructions: Twice daily (DME) OneTouch Ultra Test Strip See Rx Instructions .Route Qty: 100 3RF Rx Instructions: twice daily (DME) lancets [BD Ultra Fine Lancets] 33 gauge misc See Rx Instructions .Route Qty: 100 0RF Rx Instructions: twice daily albuterol sulfate 90 mcg/actuation HFA aerosol inhaler 2 puff inhalation Q6H PRN (Reason: shortness of breath or wheezing) Qty: 8.5 3RF Jardiance 10 mg tablet 10 mg PO DAILY Qty: 90 3RF gabapentin [Neurontin] 600 mg tablet 600 mg PO TID Qty: 270 3RF glimepiride 4 mg tablet 4 mg PO DAILY Qty: 90 3RF haloperidol 1 mg tablet 1 mg PO BID Qty: 180 3RF insulin degludec [Tresiba FlexTouch U-100] 100 unit/mL (3 mL) insulin pen 40 unit SUBCUT DAILY Qty: 36 3RF Linzess 72 mcg capsule 72 mcg PO DAILY Qty: 90 3RF mirtazapine 15 mg tablet 15 mg PO QHS Qty: 90 3RF montelukast 10 mg tablet 10 mg PO DAILY Qty: 90 3RF (DME) pen needle, diabetic [Pen Needle] 29 gauge x 1/2 needle 1 ea Miscellaneous TID Qty: 90 3RF Rx Instructions: 31 gauge x5/16 Once daily prazosin 2 mg capsule 2 mg PO QHS Qty: 90 3RF doxycycline hyclate 100 mg capsule 100 mg PO BID Qty: 9 0RF Discharge Instructions Additional Instructions: Eloped without paperwork. Referrals: Leidy Gutierres [Primary Care Provider] - HPI General Date/Time Provider Initiated Documentation: 11/13/23 10:07 . HPI Narrative: 43 y/o F presents to ED today with a chief complaint of possible food poisoning from [place] food on Friday night- awoke later with chills/sweats, nausea and vomiting that night- continuing through to today. Patient states many episodes of vomiting, states she hasn't had a BM yet but is passing gas, denies diarrhea. Patient denies chest pain, denies shortness of breath, is afebrile on arrival. Patient is urinating, intermittently able to keep fluids down. Patients' medical history: Patient endorses history of X2 and total hysterectomy, T2DM, BPD with PTSD, gastroparesis. Family and social history: noncontributory. Related Data Home Medications Medication Instructions Recorded Confirmed insulin degludec 100 unit/mL 40 unit (0.4 mL) subcut QAM 1 05/03/22 06/27/23 subcutaneous solution (Tresiba month #36 mL U-100 Insulin) albuterol sulfate 90 mcg/actuation 2 puff inhalation Q6H PRN 09/06/22 06/27/23 aerosol inhaler shortness of breath or wheezing #8.5 grams blood sugar diagnostic (OneTouch #100 ea 09/06/22 Ultra Test strips) blood-glucose meter (OneTouch #1 ea 09/06/22 Ultra2 Meter kit) empagliflozin 10 mg tablet 10 mg PO DAILY #90 tabs 09/06/22 06/27/23 (Jardiance) gabapentin 600 mg tablet 600 mg PO TID #270 tabs 09/06/22 06/27/23 (Neurontin) glimepiride 4 mg tablet 4 mg PO DAILY #90 tabs 09/06/22 06/27/23 haloperidol 1 mg tablet 1 mg PO BID #180 tabs 09/06/22 06/27/23 insulin degludec 100 unit/mL (3 40 unit (0.4 mL) subcut DAILY #36 09/06/22 06/27/23 mL) subcutaneous pen (Tresiba mL FlexTouch U-100 insulin) lancets 33 gauge (BD Ultra Fine #100 ea 09/06/22 Lancets) linaclotide 72 mcg capsule 72 mcg PO DAILY #90 caps 09/06/22 06/27/23 (Linzess) mirtazapine 15 mg tablet 15 mg PO QHS #90 tabs 09/06/22 06/27/23 montelukast 10 mg tablet 10 mg PO DAILY #90 tabs 09/06/22 06/27/23 pen needle, diabetic 29 gauge x ##90 09/06/22 1/ (Pen Needle) prazosin 2 mg capsule 2 mg PO QHS #90 caps 09/06/22 06/27/23 venlafaxine 150 mg 300 mg (2 x 150 mg) PO DAILY #180 09/12/22 06/27/23 capsule,extended release 24 hr caps doxycycline hyclate 100 mg capsule 100 mg PO BID #9 caps 06/27/23 Previous Rx's Medication Instructions Recorded insulin degludec 100 unit/mL 40 unit (0.4 mL) subcut QAM 1 05/03/22 subcutaneous solution (Tresiba month #36 mL U-100 Insulin) albuterol sulfate 90 mcg/actuation 2 puff inhalation Q6H PRN 09/06/22 aerosol inhaler shortness of breath or wheezing #8.5 grams blood sugar diagnostic (OneTouch #100 ea 09/06/22 Ultra Test strips) blood-glucose meter (OneTouch #1 ea 09/06/22 Ultra2 Meter kit) empagliflozin 10 mg tablet 10 mg PO DAILY #90 tabs 09/06/22 (Jardiance) gabapentin 600 mg tablet 600 mg PO TID #270 tabs 09/06/22 (Neurontin) glimepiride 4 mg tablet 4 mg PO DAILY #90 tabs 09/06/22 haloperidol 1 mg tablet 1 mg PO BID #180 tabs 09/06/22 insulin degludec 100 unit/mL (3 40 unit (0.4 mL) subcut DAILY #36 09/06/22 mL) subcutaneous pen (Tresiba mL FlexTouch U-100 insulin) lancets 33 gauge (BD Ultra Fine #100 ea 09/06/22 Lancets) linaclotide 72 mcg capsule 72 mcg PO DAILY #90 caps 09/06/22 (Linzess) mirtazapine 15 mg tablet 15 mg PO QHS #90 tabs 09/06/22 montelukast 10 mg tablet 10 mg PO DAILY #90 tabs 09/06/22 pen needle, diabetic 29 gauge x ##90 09/06/22 1/2 (Pen Needle) prazosin 2 mg capsule 2 mg PO QHS #90 caps 09/06/22 venlafaxine 150 mg 300 mg (2 x 150 mg) PO DAILY #180 09/12/22 capsule,extended release 24 hr caps doxycycline hyclate 100 mg capsule 100 mg PO BID #9 caps 06/27/23 Allergies Allergy/AdvReac Type Severity Reaction Status Date / Time fluconazole Allergy Unknown Other (See Unverified 11/13/23 09:54 Comment) sulfamethoxazole Allergy dont Verified 11/13/23 09:54 [From Bactrim] remember trimethoprim [From Bactrim] Allergy heeadache Verified 11/13/23 09:54 tomato AdvReac Intermediate severe Unverified 11/13/23 09:54 migraines/abd cramping/diarrhea dapagliflozin AdvReac headache Verified 11/13/23 09:54 diarrhea General Stated Complaint: Nausea/Vomit/Diar DERRELL: 3 Review of Systems All systems reviewed & are unremarkable except as noted in HPI and below Exam Narrative Exam Narrative: GENERAL APPEARANCE: Well-nourished, non-toxic, awake and alert, atraumatic, no acute distress. SKIN: Warm, pink, dry, intact, without rashes/lesions/ulcerations. HEAD: Normocephalic, atraumatic, normal hair distribution for gender/age. EYES: Normal conjunctiva, no exudates on lids/lashes. ENT: Nares patent, no circumoral cyanosis, no facial swelling NECK: Supple, trachea midline, painless cervical ROM. LUNGS/CHEST: Lungs CTA bilaterally- no rhonchi/rales/wheezes diffusely, non- labored respirations, normal A/P diameter, symmetrical expansion, no chest wall deformity HEART (CV/PV): Regular rate and rhythm without murmur, no peripheral edema, no JVD. ABDOMEN: Soft, non-distended, no guarding, RUQ tenderness + Cuevas's, diffuse other quadrants tender, no CVA tenderness to percussion bilaterally. MSK: Normal ROM, no swelling/deformity to bilateral UEs or LEs, moving all extremities without weakness, no cyanosis, spine midline without tenderness, normal curvature. NEURO: Mental Status AAOx4 - alert to person, place, time, events No facial droop, no forehead involvement. Motor: No focal weakness - strength 5/5 in bilateral UEs and LEs, proximal and distal, symmetric. Sensory: sensation intact to light touch globally. Gait normal: patient ambulated without ataxia into ED room. PSYCH: euthymic, cooperative, pleasant, appropriate speech Course Vital Signs Vital signs: Vital Signs Temperature 36.6 C 11/13/23 09:48 Pulse 71 11/13/23 09:48 Respiratory Rate 16 11/13/23 09:48 Blood Pressure 147/97 H 11/13/23 09:48 Pulse Oximetry 96 11/13/23 09:48 Temperature 36.6 C 11/13/23 09:48 Temperature Source Skin 11/13/23 09:48 Pulse 71 11/13/23 09:48 Respiratory Rate 16 11/13/23 09:48 Blood Pressure 147/97 H 11/13/23 09:48 Blood Pressure Position Sitting 11/13/23 09:48 Pulse Oximetry 96 11/13/23 09:48 Oxygen Delivery Method Room Air 11/13/23 09:48 Oxygen Flow Rate 0 11/13/23 09:48 Pain Level 10 11/13/23 09:48 Comment states chronic pain 11/13/23 09:48 Medical Decision Making This dictation utilizes [id number] dictation software and may contain unedited grammatical errors. 43 y/o F presents to ED today with a chief complaint of possible food poisoning from [place] food on Friday night- awoke later with chills/sweats, nausea and vomiting that night- continuing through to today. Patient states many episodes of vomiting, states she hasn't had a BM yet but is passing gas, denies diarrhea. Patient denies chest pain, denies shortness of breath, is afebrile on arrival. Patient is urinating, intermittently able to keep fluids down. Patients' medical history: Patient endorses history of X2 and total hysterectomy, T2DM, BPD with PTSD, gastroparesis. Family and social history: noncontributory. Pertinent exam findings / vital signs include diffuse abdominal tenderness most focal in the right upper quadrant, no CVA tenderness to percussion bilaterally, benign cardiopulmonary status, neuro intact, nontoxic vital signs. Differential / pathologies of concern include gastroparesis, gastroenteritis, biliary colic, renal colic, SBO, diverticulitis. Diagnostic studies of: -CBC, BMP, CRP, lactate, lipase, liver panel, procalcitonin, magnesium, ESR, US abdomen. -patient refused blood draws/IVs, eloped Interventions of: -planned for IVF, tylenol, ketorlac, zofran. ED Course/Assessment/Plan: 43-year-old female presents to the emergency department with nausea and vomiting and chills and sweats since eating [place] food Vera night, woke later that evening with episodes of vomiting which has continued through today, denies any bowel movement since then. Is passing gas. Patient is quite tender in the right upper quadrant area and has a history of gastroparesis in the setting of T2DM. The patient eloped without any labs or imaging being performed. Emergent pathology not ruled out due to the patient voluntarily eloping. Findings not consistent with definitive ruleout- patient eloped. Disposition of Abdominal Pain of Unknown Cause. Patient verbalized understanding of the plan and return to ED criteria and engaged in shared decision making. Medical Records Medical records reviewed: Yes I reviewed the patient's medical records. Quality:SDOH Health Related Social Needs: No Data to Display [facility] All Active Problems (Updated 11/13/23 @ 11:09 by BERNARDO Jimenez) Abdominal pain of unknown cause (Acute) Cervical disc disease (Acute) Lumbar facet joint syndrome (Acute) Hyperglycemic crisis in diabetes mellitus (Acute) B12 deficiency (Acute) Memory loss of unknown cause (Acute) Hypertension (Chronic) Low back pain (Acute) Neuropathy (Acute) Borderline personality disorder (Acute) PTSD (post-traumatic stress disorder) (Acute) Bipolar 2 disorder, major depressive episode (Acute) Type 2 diabetes mellitus not at goal (Acute) Gastroparesis (Acute) Medical History COVID-19 Furuncle of labia majora Surgical History Hx of section x3 H/O total hysterectomy Family History Mother Alcohol use disorder Father Alcohol use disorder Brother No problems noted. Son Depression Son Depression Daughter Depression Daughter No problems noted. Social History Smoking/Tobacco Use Status: Current every day Tobacco Type: cigarettes Tobacco: How many years used: 25 Quit status: considering quitting Second Hand Exposure: Yes Smoking risk assessment performed?: Yes Alcohol Intake: never Drug use: Daily Substance use type: marijuana Caregiver/Support person: No Household members: significant other, family and children Housing: house Communication Needs: None Do you need help understanding health information?: Always Pets and animals: Yes Pets and animals: dog(s) Sexually active: Yes Do you think of yourself as: straight/heterosexual Current gender identity: female How often do you talk on the phone with friends or family?: never How often do you get together with friends or relatives?: never How often do you attend judaism or holiness services?: 4 or more times per year Do you belong to any clubs or organized social groups?: no Panel score (0-1 are the most socially isolated patients): 1 What type of physical activity do you participate in: none Frequency: does not exercise Marie/Sikhism: None Special marie needs: No Seatbelt use: always Helmet use: Yes Helmet use: always Drive intox or ride w/intox public transit trolley driver: No Do you feel safe at home: Yes Do you feel safe in your relationship?: Yes
[2023-11-13 11:00] VITALS: BP 147/97; PULSE 71; RESP 16; TEMP 36.6; O2SAT 96
== END 2023-11-13 11:09 | disposition left against medical advice (07) ==
PROVIDERS: Emergency Provider Physician Assistant; PCP Family Medicine
DX: R11.2 Nausea with vomiting, unspecified (principal); Z53.29 Procedure and treatment not carried out because of patient's decision for other reasons
CPT/HCPCS: 80048; 80076; 83690; 84145; 85652; 99281; 83605; 83735; 85025; 86140; 99282

== ENCOUNTER 2023-11-13 18:06 | Emergency (ER) | payer MEDICARE, MEDICAID, SELFPAY ==
[2023-11-13 18:11] VITALS: BP 144/52; PULSE 87; RESP 18; TEMP 36.7; O2SAT 97
--- NOTE | 2023-11-13 18:15 | RT.EKG_ITS ---
APPROVED REPORT Exam: Resting ECG Reason for Exam: nausea Patient Location: E HR:67 bpm ECG Measurements Heart Rate 67 AXIS MA 193 P 37 QRSd 77 QRS 54 QT 415 T 66 QTc 437 Conclusion Sinus rhythm...normal P axis, V-rate 60- 99 sinus rhtyhm, normal axis, nomral intervals, no ischemic
[2023-11-13 18:35] LABS: BE (Venous) 2 mmol/L (-2-3); HCO3 (Venous) 26 mmol/L (23-28); O2 Sat (Venous) 60 %; TCO2 (Venous) 22 mmol/L (24-29); pCO2 (Venous) 33 mmHg (41-51); pH (Venous) 7.49 (7.31-7.41); pO2 (Venous) 30 mmHg
[2023-11-13 18:39] LABS: Abs Immature Grans 0.04 10^3/uL (0.0-0.06); Absolute Basophil Count 0.06 10^3/uL (0.0-0.2); Absolute Eosinophil Count 0.03 10^3/uL (0.0-0.7); Absolute Lymphocyte Count 1.87 10^3/uL (1.2-3.4); Absolute Monocyte Count 0.42 10^3/uL (0.1-0.8); Absolute Neutrophil Count 6.95 10^3/uL (1.2-6.7); Basophils % 0.6 %; Eosinophils % 0.3 %; HCT 47.6 % (36.0-46.0); HGB 16.3 g/dL (11.2-15.7); Immature Grans % 0.4 %; MCH 30.1 pg (27.0-33.0); MCHC 34.2 % (32.0-36.0); MCV 88 fL (80-95); Monocytes % 4.5 %; Neutrophils % 74.2 %; Platelet Count 367 10^3/uL (130-400); RBC 5.41 10^6/uL (3.93-5.22); RDW 13.4 % (11.7-14.6); RDW-SD 42.9 fL; WBC 9.37 10^3/uL (4.4-10.8)
--- NOTE | 2023-11-13 18:45 | DI.CT_ITS ---
Exam(s) CT ABDOMEN PELVIS W EXAM: CT ABDOMEN PELVIS W CLINICAL HISTORY: RUQ pain TECHNIQUE: Imaging Protocol: Axial computed tomography images with coronal and sagittal reformatted images were created and reviewed. CONTRAST MATERIAL: Intravenous: Omnipaque 350 Contrast volume:100 mL Oral: No COMPARISON: CT ABD PELVIS WITH CONTRAST from 12/08/[address] THORACIC LUMBAR SPINE WO from 05/15/[address] CHEST PE CTA from 06/27/2023 FINDINGS: ABDOMEN: Lung Bases: There is a calcified granuloma in the right lower lobe. Liver: Normal density. No measurable mass. Portal, Superior Mesenteric, and Splenic Veins: Unremarkable. Gallbladder and Biliary Tract: No radiodense calculus or dilation. Pancreas: Normal density, no abnormal calcifications or inflammatory process. Spleen: Normal. Adrenals: No masses seen. Kidneys: Normal size, contour and axis. No radiodense stones or obstructive uropathy. There is a stab le simple right renal cyst. No follow-up is recommended. Abdominal Aorta: Abdominal portion non-dilated. Minimal atherosclerotic calcification. Bowel: No obstruction or bowel wall thickening. Appendix is unremarkable. Peritoneal Cavity: No ascites, collection or mesenteric inflammatory response. No free air. Lymph Nodes: Within normal limits. Bones: Within normal limits for the patient's age. Soft Tissues: There is a tiny fat containing umbilical hernia. PELVIS: Bladder: Symmetric distention, no gross wall thickening. Reproductive Organs: Status post hysterectomy. Lymph Nodes: Within normal limits. Bones: Within normal limits for the patient's age. IMPRESSION: No acute abdominal or pelvic process. RADIATION DOSE DELIVERED: 1,359.63mGy.cm Total DLP DATA REPOSITORY: All CT scans at this facility are submitted to the National Radiology Data Registry (NRDR) Dose Index Registry (DIR) with the [employer] (ACR). RADIATION OPTIMIZATION: All CT scans at this facility use at least one of these dose optimization te chniques: automated exposure control; mA and/or kV adjustment per patient size (includes targeted exa ms where dose is matched to clinical indication); or iterative reconstruction.
[2023-11-13 18:52] LABS: Lipase 23 U/L (16-77)
[2023-11-13 18:54] LABS: ALT 24 U/L (14-59); AST 19 U/L (15-37); Albumin 3.9 g/dL (3.4-5.0); Alkaline Phosphatase 93 U/L (46-116); Anion Gap 14.5 mmol/L (3-11); BUN 13 mg/dL (7-18); CO2 25.5 mmol/L (21.0-32.0); Calcium 9.8 mg/dL (8.5-10.1); Chloride 103 mmol/L (98-107); Estimated GFR 72.58 (mL/min/1.73m2); Glucose 113 mg/dL (74-106); HCG Qual (Serum) Negative; Potassium 3.6 mmol/L (3.5-5.1); Sodium 143 mmol/L (136-145); Total Protein 7.9 g/dL (6.4-8.2)
[2023-11-13] MEDS: FAMOTIDINE 20 MG in Normal Saline 100 ML 400 MG IVPB (18:56)
[2023-11-13] MEDS: Prochlorperazine 10 MG/2 ML VIAL 5 MG IVP (18:58)
[2023-11-13] MEDS: LORazepam 2 MG/ML VIAL 1 MG IVP (18:58)
[2023-11-13] MEDS: Lactated Ringers 1,000 ML 1000 ML IV ×2 (18:58→20:40)
[2023-11-13] MEDS: Normal Saline - Diluent 50 ML VIAL IJ (18:59)
[2023-11-13] MEDS: Omnipaque 350 MG/ML 100 ML BTL IJ (19:00)
[2023-11-13] MEDS: Normal Saline Flush 10 ML SYR IVP (19:00)
[2023-11-13 19:03] LABS: ETHANOL BLOOD < 3.0 mg/dL (<10)
--- NOTE | 2023-11-13 19:07 | NUR.NOTE ---
Nursing Note: gastro-occult positive
--- NOTE | 2023-11-13 20:10 | DI.VRAD_ITS ---
PROCEDURE INFORMATION: Exam: CT Abdomen And Pelvis With Contrast Exam date and time: 11/13/2023 7:25 PM Age: 43 years old Clinical indication: Other: Ruq pain TECHNIQUE: Imaging protocol: Computed tomography of the abdomen and pelvis with contrast. Contrast material: OMNI 350; Contrast volume: 100 ml; Contrast route: INTRAVENOUS (IV); COMPARISON: CT ABD PELVIS WITH CONTRAST 12/08/2017 11:13 AM FINDINGS: Liver: Normal. No mass. Gallbladder and biliary ducts: Normal. No calcified stones. No ductal dilation. Pancreas: Normal. No ductal dilation. Spleen: Normal. No splenomegaly. Adrenal glands: Normal. No mass. Kidneys and ureters: There is a tiny sub cm low-dense right renal lesion which is too small to characterize but likely represents a benign cyst. Stomach and bowel: There is no evidence of small or large bowel inflammation. There is no evidence for bowel obstruction. Appendix: The appendix is well visualized and appears normal. Intraperitoneal space: There is no free intraperitoneal air. There is no evidence of free intraperitoneal fluid. Vasculature: The aorta and iliac arteries demonstrate mild atherosclerotic calcification without aneurysm formation. Lymph nodes: Unremarkable. No enlarged lymph nodes. Urinary bladder: Unremarkable as visualized. Reproductive: There has been a hysterectomy. Bones/joints: There is multilevel mild degenerative change of the lower thoracic and lumbar spine. No acute fractures are identified. Soft tissues: There is a 1.6 x 0.8 cm fat containing umbilical hernia. IMPRESSION: 1. No acute process within the abdomen or pelvis identified. 2. Status post hysterectomy. 3. Small fat containing umbilical hernia. Dictated and Authenticated by: Bryan Arredondo MD. Ordering:[id number] Valenzuela MD
[2023-11-13 20:17] VITALS: BP 144/52; PULSE 87; RESP 18; TEMP 36.7; O2SAT 97
[2023-11-13 20:30] LABS: Bilirubin Small (Negative); Blood Negative (Negative); Clarity Sl Cloudy (Clear); Glucose Negative (Negative); Ketones >=160 mg/dL (Negative); Leukocyte Esterase Negative (Negative); Nitrite Negative (Negative); Urobilinogen 0.2 mg/dL (Up to 0.2); pH 8.5 (5-8)
[2023-11-13 20:39] LABS: Bacteria Negative HPF (Negative); Casts Negative LPF (Negative); Crystals Negative HPF (Negative); Epithelial Cells Rare HPF (Negative); Mucus Negative (Negative); RBC Negative HPF (0-2); WBC 0-2 HPF (0-5)
[2023-11-13 20:40] LABS: C & S Indicated? No
[2023-11-13 20:54] LABS: *AMPHETAMINES SCREEN URINE Negative (Negative); *BARBITURATES SCREEN URINE Negative (Negative); *BENZODIAZEPINES SCREEN URINE Negative (Negative); Cannabinoids THC Positive (Negative); Cocaine Screen,Urine Negative (Negative); METHADONE URINE SCREEN Negative (Negative); OPIATES URINE SCREEN Negative (Negative)
[2023-11-13 20:58] LABS: Tricyclic Antidepressants Negative (Negative)
[2023-11-13 22:03] VITALS: BP 135/98; PULSE 74; RESP 16; O2SAT 97
[2023-11-13] MEDS: Prochlorperazine 10 MG TAB PO (22:03)
--- NOTE | 2023-11-15 17:50 | ED.GENADUL_ITS ---
Discharge Plan Disposition Patient Disposition: Home Condition: Stable Discharge Details Clinical Impression: Nausea & vomiting Primary Care Provider: Leidy Gutierres ED Provider: Bianca Winchester Home Meds and New Rx's Prescriptions: New prochlorperazine maleate [Compazine] 10 mg tablet 10 mg PO Q6H PRNQty: 10 0RF Continued insulin degludec [Tresiba U-100 Insulin] 100 unit/mL solution 40 unit subcut QAM 30 Days Qty: 36 3RF venlafaxine 150 mg capsule,extended release 24hr 300 mg PO DAILY Qty: 180 3RF (DME) blood-glucose meter [OneTouch Ultra2 Meter] Kit See Rx Instructions .Route Qty: 1 3RF Rx Instructions: Twice daily (DME) OneTouch Ultra Test Strip See Rx Instructions .Route Qty: 100 3RF Rx Instructions: twice daily (DME) lancets [BD Ultra Fine Lancets] 33 gauge misc See Rx Instructions .Route Qty: 100 0RF Rx Instructions: twice daily albuterol sulfate 90 mcg/actuation HFA aerosol inhaler 2 puff inhalation Q6H PRN (Reason: shortness of breath or wheezing) Qty: 8.5 3RF Jardiance 10 mg tablet 10 mg PO DAILY Qty: 90 3RF gabapentin [Neurontin] 600 mg tablet 600 mg PO TID Qty: 270 3RF glimepiride 4 mg tablet 4 mg PO DAILY Qty: 90 3RF haloperidol 1 mg tablet 1 mg PO BID Qty: 180 3RF insulin degludec [Tresiba FlexTouch U-100] 100 unit/mL (3 mL) insulin pen 40 unit SUBCUT DAILY Qty: 36 3RF Linzess 72 mcg capsule 72 mcg PO DAILY Qty: 90 3RF mirtazapine 15 mg tablet 15 mg PO QHS Qty: 90 3RF montelukast 10 mg tablet 10 mg PO DAILY Qty: 90 3RF (DME) pen needle, diabetic [Pen Needle] 29 gauge x 1/2 needle 1 ea Miscellaneous TID Qty: 90 3RF Rx Instructions: 31 gauge x5/16 Once daily prazosin 2 mg capsule 2 mg PO QHS Qty: 90 3RF doxycycline hyclate 100 mg capsule 100 mg PO BID Qty: 9 0RF Discharge Instructions Instructions: Nausea and vomiting in adults Additional Instructions: Take Compazine as needed for nausea and vomiting Jennings diet, clear liquids, zane elkin Stay away from solid food until you are able to tolerate popsicles and juice Keep an eye on your blood sugars Return should you develop new or worsening complaints Take Protonix for the next 7 days to help with esophageal irritation from vo miting Referrals: Leidy Gutierres [Primary Care Provider] - 1 day Discharge Data Discharge Date/Time-TO BE ENTERED AT DEPARTURE: 11/13/23 22:03 HPI General Date/Time Provider Initiated Documentation: 11/13/23 18:27 . HPI Narrative: This insulin-dependent diabetic presents with nausea and vomiting since Friday. Reportedly here earlier today but left secondary to lack of imaging AGAINST MEDICAL ADVICE. Has had numerous episodes of vomiting with some blood noted after copious vomiting. Denies any diarrhea. Denies any history of alcohol use. Does smoke marijuana. Denies chance of . Denies any blood in stool. Has had abdominal pain intermittently. Denies fever or chills or sick contacts. Possible spoiled food exposure. Related Data Home Medications Medication Instructions Recorded Confirmed insulin degludec 100 unit/mL 40 unit (0.4 mL) subcut QAM 1 05/03/22 06/27/23 subcutaneous solution (Tresiba month #36 mL U-100 Insulin) albuterol sulfate 90 mcg/actuation 2 puff inhalation Q6H PRN 09/06/22 06/27/23 aerosol inhaler shortness of breath or wheezing #8.5 grams blood sugar diagnostic (OneTouch #100 ea 09/06/22 Ultra Test strips) blood-glucose meter (OneTouch #1 ea 09/06/22 Ultra2 Meter kit) empagliflozin 10 mg tablet 10 mg PO DAILY #90 tabs 09/06/22 06/27/23 (Jardiance) gabapentin 600 mg tablet 600 mg PO TID #270 tabs 09/06/22 06/27/23 (Neurontin) glimepiride 4 mg tablet 4 mg PO DAILY #90 tabs 09/06/22 06/27/23 haloperidol 1 mg tablet 1 mg PO BID #180 tabs 09/06/22 06/27/23 insulin degludec 100 unit/mL (3 40 unit (0.4 mL) subcut DAILY #36 09/06/22 06/27/23 mL) subcutaneous pen (Tresiba mL FlexTouch U-100 insulin) lancets 33 gauge (BD Ultra Fine #100 ea 09/06/22 Lancets) linaclotide 72 mcg capsule 72 mcg PO DAILY #90 caps 09/06/22 06/27/23 (Linzess) mirtazapine 15 mg tablet 15 mg PO QHS #90 tabs 09/06/22 06/27/23 montelukast 10 mg tablet 10 mg PO DAILY #90 tabs 09/06/22 06/27/23 pen needle, diabetic 29 gauge x ##90 09/06/2205/20 (Pen Needle) prazosin 2 mg capsule 2 mg PO QHS #90 caps 09/06/22 06/27/23 venlafaxine 150 mg 300 mg (2 x 150 mg) PO DAILY #180 09/12/22 06/27/23 capsule,extended release 24 hr caps doxycycline hyclate 100 mg capsule 100 mg PO BID #9 caps 06/27/23 prochlorperazine maleate 10 mg 10 mg PO Q6H PRN #10 tabs 11/13/23 tablet (Compazine) Previous Rx's Medication Instructions Recorded insulin degludec 100 unit/mL 40 unit (0.4 mL) subcut QAM 1 05/03/22 subcutaneous solution (Tresiba month #36 mL U-100 Insulin) albuterol sulfate 90 mcg/actuation 2 puff inhalation Q6H PRN 09/06/22 aerosol inhaler shortness of breath or wheezing #8.5 grams blood sugar diagnostic (OneTouch #100 ea 09/06/22 Ultra Test strips) blood-glucose meter (OneTouch #1 ea 09/06/22 Ultra2 Meter kit) empagliflozin 10 mg tablet 10 mg PO DAILY #90 tabs 09/06/22 (Jardiance) gabapentin 600 mg tablet 600 mg PO TID #270 tabs 09/06/22 (Neurontin) glimepiride 4 mg tablet 4 mg PO DAILY #90 tabs 09/06/22 haloperidol 1 mg tablet 1 mg PO BID #180 tabs 09/06/22 insulin degludec 100 unit/mL (3 40 unit (0.4 mL) subcut DAILY #36 09/06/22 mL) subcutaneous pen (Tresiba mL FlexTouch U-100 insulin) lancets 33 gauge (BD Ultra Fine #100 ea 09/06/22 Lancets) linaclotide 72 mcg capsule 72 mcg PO DAILY #90 caps 09/06/22 (Linzess) mirtazapine 15 mg tablet 15 mg PO QHS #90 tabs 09/06/22 montelukast 10 mg tablet 10 mg PO DAILY #90 tabs 09/06/22 pen needle, diabetic 29 gauge x ##90 09/06/22/ (Pen Needle) prazosin 2 mg capsule 2 mg PO QHS #90 caps 09/06/22 venlafaxine 150 mg 300 mg (2 x 150 mg) PO DAILY #180 09/12/22 capsule,extended release 24 hr caps doxycycline hyclate 100 mg capsule 100 mg PO BID #9 caps 06/27/23 prochlorperazine maleate 10 mg 10 mg PO Q6H PRN #10 tabs 11/13/23 tablet (Compazine) Allergies Allergy/AdvReac Type Severity Reaction Status Date / Time fluconazole Allergy Unknown Other (See Unverified 11/13/23 18:14 Comment) sulfamethoxazole Allergy dont Verified 11/13/23 18:14 [From Bactrim] remember trimethoprim [From Bactrim] Allergy heeadache Verified 11/13/23 18:14 tomato AdvReac Intermediate severe Unverified 11/13/23 18:14 migraines/abd cramping/diarrhea dapagliflozin AdvReac headache Verified 11/13/23 18:14 diarrhea General Stated Complaint: Abd Prob DERRELL: 3 Exam Narrative Exam Narrative: Alert, oriented, left lower quadrant abdominal pain palpated, no rebound or guarding, no scleral icterus, moist mucous membranes, no visible blood, no respiratory distress, cardiac rate rhythm regular, no CVA tenderness, no pallor, alert and oriented x 4, distal pulses intact Course Vital Signs Vital signs: Vital Signs Temperature 36.7 C 11/13/23 18:11 Pulse 87 11/13/23 18:11 Respiratory Rate 18 11/13/23 18:11 Blood Pressure 144/52 H 11/13/23 18:11 Pulse Oximetry 97 11/13/23 18:11 Temperature 36.7 C 11/13/23 20:17 Temperature Source Oral 11/13/23 20:17 Pulse 74 11/13/23 22:03 Respiratory Rate 16 11/13/23 22:03 Respiratory Effort Normal, Non-Labored 11/13/23 20:17 Blood Pressure 135/98 H 11/13/23 22:03 Blood Pressure Position Sitting 11/13/23 20:17 Pulse Oximetry 97 11/13/23 22:03 Oxygen Delivery Method Room Air 11/13/23 20:17 Oxygen Flow Rate 0 11/13/23 20:17 Pain Level 10 11/13/23 20:17 Lab/Test Results Lab/Test Results: Laboratory Tests Range/Units 11/13/23 11/13/23 11/13/23 18:16 18:20 20:20 WBC (4.4-10.8) 10^3/uL 9.37 RBC (3.93-5.22) 10^6/uL 5.41 H Hgb (11.2-15.7) g/dL 16.3 H Hct (36.0-46.0) % 47.6 H MCV (80-95) fL 88 MCH (27.0-33.0) pg 30.1 MCHC (32.0-36.0) % 34.2 RDW (11.7-14.6) % 13.4 Plt Count (130-400) 10^3/uL 367 MPV (8.0-11.0) fL 10.0 Immature Gran % % 0.4 Neutrophils % % 74.2 Lymphocytes % % 20.0 Monocytes % % 4.5 Eosinophils % % 0.3 Basophils % % 0.6 Nucleated RBC % (0.0-0.3) % 0.0 Absolute Neutrophils (1.2-6.7) 10^3/uL 6.95 H Absolute Lymphocytes (1.2-3.4) 10^3/uL 1.87 Absolute Monocytes (0.1-0.8) 10^3/uL 0.42 Absolute Eosinophils (0.0-0.7) 10^3/uL 0.03 Absolute Basophils (0.0-0.2) 10^3/uL 0.06 VBG pH (7.31-7.41) 7.49 H VBG pCO2 (41-51) mmHg 33 L VBG pO2 mmHg 30 VBG HCO3 (23-28) mmol/L 26 VBG Total CO2 (24-29) mmol/L 22 L VBG O2 Saturation % 60 VBG Base Excess (-2-3) mmol/L 2 Sodium (136-145) mmol/L 143 Potassium (3.5-5.1) mmol/L 3.6 Chloride (98-107) mmol/L 103 Carbon Dioxide (21.0-32.0) mmol/L 25.5 Anion Gap (3-11) mmol/L 14.5 H BUN (7-18) mg/dL 13 Creatinine (0.55-1.02) mg/dL 1.0 Est GFR (CKD-EPI 2020) (mL/min/1.73m2) 72.58 Glucose (74-106) mg/dL 113 H Calcium (8.5-10.1) mg/dL 9.8 Total Bilirubin (0.2-1.0) mg/dL 0.80 AST (15-37) U/L 19 ALT (14-59) U/L 24 Alkaline Phosphatase (46-116) U/L 93 Total Protein (6.4-8.2) g/dL 7.9 Albumin (3.4-5.0) g/dL 3.9 Lipase (16-77) U/L 23 Serum HCG, Qual Negative Urine Color (Yellow) Yellow Urine Clarity (Clear) Sl Cloudy Urine pH (5-8) 8.5 H Ur Specific [place] (1.005-1.025) 1.010 Urine Protein (Neg-Trace) mg/dL 30 H Urine Ketones (Negative) mg/dL >=160 H Urine Blood (Negative) Negative Urine Nitrite (Negative) Negative Urine Bilirubin (Negative) Small H Urine Urobilinogen (Up to 0.2) mg/dL 0.2 Ur Leukocyte Esterase (Negative) Negative Urine RBC (0-2) HPF Negative Urine WBC (0-5) HPF 0-2 Ur Epithelial Cells (Negative) HPF Rare Urine Crystals (Negative) HPF Negative Urine Bacteria (Negative) HPF Negative Urine Casts (Negative) LPF Negative Urine Mucus (Negative) Negative Ur Culture Indicated? No Urine Glucose (Negative) mg/dL Negative Urine Opiates Screen (Negative) Negative Urine Methadone Screen (Negative) Negative Ur Barbiturates Screen (Negative) Negative Ur Tricyclics Screen (Negative) Negative Ur Amphetamines Screen (Negative) Negative U Benzodiazepines Scrn (Negative) Negative Urine Cocaine Screen (Negative) Negative Ur THC Screen (Negative) Positive A Ethyl Alcohol (<10) mg/dL < 3.0 Medical Decision Making 43-year-old female presenting with nausea and vomiting since Friday. Was evaluated earlier but left prior to completed diagnostic evaluation. Hemoglobin and hematocrit stable since this morning. Suspect [place] tear with no additional episodes of bloody emesis today. No evidence of DKA, gap of 14.5, given 2 L of fluids. Able to tolerate p.o., antiemetics applied. Glucose 113 ketones 160. Able to tolerate p.o., would like to be discharged home at this time. CT abdomen pelvis was ordered for further evaluation. CT per radiologist does not show evidence of acute abnormality of abdomen and pelvis per radiology interpretation and my review. Discharged home with antiemetics. Return precautions reviewed and patient expressed understanding. Recheck in 48 hours recommended. Quality:SDOH Health Related Social Needs: No Data to Display PFSH All Active Problems (Updated 11/13/23 @ 21:52 by BERNARDO Cruz) Nausea & vomiting (Acute) Abdominal pain of unknown cause (Acute) Cervical disc disease (Acute) Lumbar facet joint syndrome (Acute) Hyperglycemic crisis in diabetes mellitus (Acute) B12 deficiency (Acute) Memory loss of unknown cause (Acute) Hypertension (Chronic) Low back pain (Acute) Neuropathy (Acute) Borderline personality disorder (Acute) PTSD (post-traumatic stress disorder) (Acute) Bipolar 2 disorder, major depressive episode (Acute) Type 2 diabetes mellitus not at goal (Acute) Gastroparesis (Acute) Medical History COVID-19 Furuncle of labia majora Surgical History Hx of section x3 H/O total hysterectomy Family History Mother Alcohol use disorder Father Alcohol use disorder Brother No problems noted. Son Depression Son Depression Daughter Depression Daughter No problems noted. Social History Smoking/Tobacco Use Status: Current every day Tobacco Type: cigarettes Tobacco: How many years used: 25 Quit status: considering quitting Second Hand Exposure: Yes Smoking risk assessment performed?: Yes Alcohol Intake: never Drug use: Daily Substance use type: marijuana Caregiver/Support person: No Household members: significant other, family and children Housing: house Communication Needs: None Do you need help understanding health information?: Always Pets and animals: Yes Pets and animals: dog(s) Sexually active: Yes Do you think of yourself as: straight/heterosexual Current gender identity: female How often do you talk on the phone with friends or family?: never How often do you get together with friends or relatives?: never How often do you attend orthodox or denominational services?: 4 or more times per year Do you belong to any clubs or organized social groups?: no Panel score (0-1 are the most socially isolated patients): 1 What type of physical activity do you participate in: none Frequency: does not exercise Marie/Sabianism: None Special marie needs: No Seatbelt use: always Helmet use: Yes Helmet use: always Drive intox or ride w/intox 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
== END 2023-11-13 22:03 | disposition home or self-care (01) ==
PROVIDERS: Emergency Provider Physician Assistant; PCP Family Medicine
DX: R11.2 Nausea with vomiting, unspecified (principal); R10.9 Unspecified abdominal pain; E11.9 Type 2 diabetes mellitus without complications
CPT/HCPCS: 80053; 80307; 82805; 83690; 93005; 96361; 96365; 96375; 99285; 74177; 80320; 81003; 81015; 84703; 85025; 93010; 99283; J0780; J2060; J3490

== ENCOUNTER → 2023-12-12 00:36 | Outpatient (CLI) | payer MEDICARE, MEDICAID, SELFPAY ==
--- NOTE | 2023-12-12 15:35 | DI.MAMMO_ITS ---
Exam(s) MAMMO SCREENING EXAM: MAMMO SCREENING CLINICAL HISTORY: SCREENING, Z12.31 TECHNIQUE: Mammograms were interpreted according to the usual protocol including computer analysis w eventuosity CAD system, tomosynthesis and C-view imaging. COMPARISON: No exams were available for comparison. Baseline examination. FINDINGS: The breasts are composed of scattered fibroglandular densities, Breast Density category B. No suspicious masses or suspicious microcalcifications are seen. No skin thickening or abnormal axillary lymph nodes are seen. IMPRESSION: BI-RADS Category 1, Negative mammogram Yearly screening mammography is recommended. Breast Density - Category B, scattered fibroglandular densities. A negative radiographic report should not delay biopsy if a dominant or clinically suspicious mass is present. Up to ten percent of cancers are not identified on mammography. A negative report may reinforce clinical impression. Adenosis and dense breasts may obscure an underlying neoplasm. False positive reports average 6 to 10%. Patient will receive a letter notifying them of these results.
== END ==
PROVIDERS: PCP Family Medicine; Visit Provider Family Medicine
DX: Z12.31 Encounter for screening mammogram for malignant neoplasm of breast (principal)
CPT/HCPCS: 77063; 77067

== ENCOUNTER 2024-01-15 05:18 | Emergency (ER) | payer MEDICARE, MEDICAID, SELFPAY ==
[2024-01-15 05:21] VITALS: BP 154/96; PULSE 78; RESP 18; TEMP 36.5; O2SAT 98
--- NOTE | 2024-01-15 05:30 | DI.RAD_ITS ---
Exam(s) XR FOOT RT LIMITED EXAM: XR FOOT RT LIMITED CLINICAL HISTORY: pain lateral distal right great toe, swelling. TECHNIQUE: 2D digital imaging was performed. Three views. COMPARISON: No exams were available for comparison FINDINGS: BONES: No acute fracture is present. No bony destructive lesion is seen. JOINTS: No dislocation present. SOFT TISSUE: Normal. IMPRESSION: Unremarkable radiographs of the right foot. DATA REPOSITORY: RADIATION DOSE DELIVERED:
--- NOTE | 2024-01-15 05:41 | W.ED.GENAD ---
Discharge Plan Disposition Patient Disposition: Home Condition: Good Discharge Details Clinical Impression: Great toe pain Primary Care Provider: Leidy Gutierres ED Provider: Leyla Carter Home Meds and New Rx's Prescriptions: Continued (DME) blood-glucose meter [OneTouch Ultra2 Meter] Kit See Rx Instructions .Route Qty: 1 3RF Rx Instructions: Twice daily (DME) OneTouch Ultra Test Strip See Rx Instructions .Route Qty: 100 3RF Rx Instructions: twice daily (DME) lancets [BD Ultra Fine Lancets] 33 gauge misc See Rx Instructions .Route Qty: 100 0RF Rx Instructions: twice daily albuterol sulfate 90 mcg/actuation HFA aerosol inhaler 2 puff inhalation Q6H PRN (Reason: shortness of breath or wheezing) Qty: 8.5 3RF Jardiance 10 mg tablet 10 mg PO DAILY Qty: 90 3RF gabapentin [Neurontin] 600 mg tablet 600 mg PO TID Qty: 270 3RF glimepiride 4 mg tablet 4 mg PO DAILY Qty: 90 3RF Linzess 72 mcg capsule 72 mcg PO DAILY Qty: 90 3RF mirtazapine 15 mg tablet 15 mg PO QHS Qty: 90 3RF montelukast 10 mg tablet 10 mg PO DAILY Qty: 90 3RF (DME) pen needle, diabetic [Pen Needle] 29 gauge x 1/2 needle 1 ea Miscellaneous TID Qty: 90 3RF Rx Instructions: 31 gauge x5/16 Once daily trazodone 150 mg tablet 450 mg PO HS duloxetine 60 mg capsule,delayed release(DR/EC) 60 mg PO HS insulin degludec [Tresiba FlexTouch U-100] 100 unit/mL (3 mL) insulin pen 65 unit SUBCUT DAILY prochlorperazine maleate [Compazine] 10 mg tablet 10 mg PO Q6H PRNQty: 10 0RF Discharge Instructions Instructions: Toe Injury (DC), Managing acute pain at home Additional Instructions: Tylenol and ibuprofen at home for pain; follow the directions on the bottle. Call your primary care doctor today to schedule an appointment within the next 5 days to followup on your visit here. Return to the emergency department for new or worsening symptoms. Stand Alone Forms: Work Release HPI General Mode of arrival: ambulatory. Date/Time Provider Initiated Documentation: 01/15/24 05:19. Limitations to Documentation: no limitations. Information obtained by: patient. HPI Narrative: 43yo F with hx T2DM, diabetic neuropathy, presenting with right great toe pain. Woke this morning with pain and numbness to medial aspect of right great toe. Cannot recall any injury to the area. Has not taken anything at home for pain. Has not had similar symptoms in the past; never seen podiatry. Otherwise in her usual state of health with no fevers, chills, rash, joint pain, numbness/tingling elsewhere, weakness, or other concerns. Related Data Home Medications ?Medication ?Instructions ?Recorded ?Confirmed albuterol sulfate 90 mcg/actuation 2 puff inhalation Q6H PRN 09/06/22 01/15/24 aerosol inhaler shortness of breath or wheezing #8.5 grams blood sugar diagnostic (OneTouch #100 ea 09/06/22 Ultra Test strips) blood-glucose meter (OneTouch #1 ea 09/06/22 Ultra2 Meter kit) empagliflozin 10 mg tablet 10 mg PO DAILY #90 tabs 09/06/22 01/15/24 (Jardiance) gabapentin 600 mg tablet 600 mg PO TID #270 tabs 09/06/22 01/15/24 (Neurontin) glimepiride 4 mg tablet 4 mg PO DAILY #90 tabs 09/06/22 01/15/24 lancets 33 gauge (BD Ultra Fine #100 ea 09/06/22 Lancets) linaclotide 72 mcg capsule 72 mcg PO DAILY #90 caps 09/06/22 01/15/24 (Linzess) mirtazapine 15 mg tablet 15 mg PO QHS #90 tabs 09/06/22 01/15/24 montelukast 10 mg tablet 10 mg PO DAILY #90 tabs 09/06/22 01/15/24 pen needle, diabetic 29 gauge x ##90 09/06/2205/20 (Pen Needle) prochlorperazine maleate 10 mg 10 mg PO Q6H PRN #10 tabs 11/13/23 01/15/24 tablet (Compazine) duloxetine 60 mg capsule,delayed 60 mg PO HS 01/15/24 01/15/24 release insulin degludec 100 unit/mL (3 65 unit subcut DAILY 01/15/24 01/15/24 mL) subcutaneous pen (Tresiba FlexTouch U-100 insulin) trazodone 150 mg tablet 450 mg PO HS 01/15/24 01/15/24 Previous Rx's ?Medication ?Instructions ?Recorded albuterol sulfate 90 mcg/actuation 2 puff inhalation Q6H PRN 09/06/22 aerosol inhaler shortness of breath or wheezing #8.5 grams blood sugar diagnostic (OneTouch #100 ea 09/06/22 Ultra Test strips) blood-glucose meter (OneTouch #1 ea 09/06/22 Ultra2 Meter kit) empagliflozin 10 mg tablet 10 mg PO DAILY #90 tabs 09/06/22 (Jardiance) gabapentin 600 mg tablet 600 mg PO TID #270 tabs 09/06/22 (Neurontin) glimepiride 4 mg tablet 4 mg PO DAILY #90 tabs 09/06/22 lancets 33 gauge (BD Ultra Fine #100 ea 09/06/22 Lancets) linaclotide 72 mcg capsule 72 mcg PO DAILY #90 caps 09/06/22 (Linzess) mirtazapine 15 mg tablet 15 mg PO QHS #90 tabs 09/06/22 montelukast 10 mg tablet 10 mg PO DAILY #90 tabs 09/06/22 pen needle, diabetic 29 gauge x ##90 09/06/22/ (Pen Needle) prochlorperazine maleate 10 mg 10 mg PO Q6H PRN #10 tabs 11/13/23 tablet (Compazine) Allergies Allergy/AdvReac Type Severity Reaction Status Date / Time fluconazole Allergy Unknown Other (See Unverified 01/15/24 05:25 Comment) sulfamethoxazole (From Allergy dont Verified 01/15/24 05:25 Bactrim) remember trimethoprim (From Bactrim) Allergy heeadache Verified 01/15/24 05:25 tomato AdvReac Intermediate severe Unverified 01/15/24 05:25 migraines/abd cramping/diarrhea dapagliflozin AdvReac headache Verified 01/15/24 05:25 diarrhea General Stated Complaint: Cellulitis DERRELL: 4 Review of Systems Narrative: see HPI Exam Narrative Exam Narrative: General: Alert, well appearing, well nourished, in no acute distress. Head: Normocephalic, atraumatic Neck: Trachea midline, ?Neck supple. Cardiac: ?Well perfused. Resp: No respiratory distress. Speaking in full sentences. Abd: ?Non-distended Right foot: Right great toe with subjective numbness to medial aspect. No paronchyia, No tenderness to nail. No warmth or erythema. Mild pain with passive ROM. Bony tenderness at base of great toe, otherwise nontender. Neurologic: GCS 15. ? Moves all extremities freely against gravity Course Vital Signs Vital signs: Vital Signs Temperature 36.5 C 01/15/24 05:21 Pulse 78 01/15/24 05:21 Respiratory Rate 18 01/15/24 05:21 Blood Pressure 154/96 H 01/15/24 05:21 Pulse Oximetry 98 01/15/24 05:21 Temperature 36.5 C 01/15/24 05:21 Pulse 78 01/15/24 05:21 Respiratory Rate 18 01/15/24 05:21 Respiratory Effort Normal 01/15/24 05:24 Blood Pressure 154/96 H 01/15/24 05:21 Blood Pressure Position Sitting 01/15/24 05:21 Pulse Oximetry 98 01/15/24 05:21 Oxygen Delivery Method Room Air 01/15/24 05:21 Oxygen Flow Rate 0 01/15/24 05:21 Medical Decision Making 43yo F with hx T2DM, diabetic neuropathy, presenting with right great toe pain; woke this morning with atraumatic pain and numbness to medial aspect of right great toe. Systemically well. Vital signs reassuring. On exam some bony tenderness at base of right great toe; no warmth or erythema to suggest infection. No parononchyia. Not concerning for gout which would be unusual in this 43yo female. Sensation intact to light touch but is subjectively numb to medial aspect of right great toe. Will treat wtih tylenol, toradol. No indication for labs. Low suspicion for fracture an no indication of injury however given DM and likely developing neuropathy will evaluate with plain film. Plain film independently reviewed; no displaced fracture on my view, agree with radiology read below. On reassessment patient reports pain improved. Advised symptomatic treatment at home and PCP followup. Discharged home; discharge instructions and return precautions were reviewed with patient who verbalized understanding. All questions were answered and she is in full agreement with the plan. Imaging Data Radiologic Study: Imaging: X-Ray Radiologist's impression: IMPRESSION: No acute findings. Quality:SDOH Health Related Social Needs: No Data to Display PFSH All Active Problems (Updated 01/15/24 @ 06:50 by Leyla Carter MD) Great toe pain (Acute) Cervical disc disease (Acute) Lumbar facet joint syndrome (Acute) Hyperglycemic crisis in diabetes mellitus (Acute) B12 deficiency (Acute) Memory loss of unknown cause (Acute) Hypertension (Chronic) Low back pain (Acute) Neuropathy (Acute) Borderline personality disorder (Acute) PTSD (post-traumatic stress disorder) (Acute) Bipolar 2 disorder, major depressive episode (Acute) Type 2 diabetes mellitus not at goal (Acute) Gastroparesis (Acute) Medical History COVID-19 Furuncle of labia majora Surgical History Hx of section x3 H/O total hysterectomy Family History Mother Alcohol use disorder Father Alcohol use disorder Brother No problems noted. Son Depression Son Depression Daughter Depression Daughter No problems noted. Social History Smoking/Tobacco Use Status: Current every day Tobacco Type: cigarettes Tobacco: How many years used: 25 Quit status: considering quitting Second Hand Exposure: Yes Smoking risk assessment performed?: Yes Alcohol Intake: never Drug use: Daily Substance use type: marijuana Caregiver/Support person: No Household members: significant other, family and children Housing: house Communication Needs: None Do you need help understanding health information?: Always Pets and animals: Yes Pets and animals: dog(s) Sexually active: Yes Do you think of yourself as: straight/heterosexual Current gender identity: female How often do you talk on the phone with friends or family?: never How often do you get together with friends or relatives?: never How often do you attend christianity or amish services?: 4 or more times per year Do you belong to any clubs or organized social groups?: no Panel score (0-1 are the most socially isolated patients): 1 What type of physical activity do you participate in: none Frequency: does not exercise Marie/Restorationist: None Special marie needs: No Seatbelt use: always Helmet use: Yes Helmet use: always Drive intox or ride w/intox waste collection driver: No Do you feel safe at home: Yes Do you feel safe in your relationship?: Yes
[2024-01-15] MEDS: Acetaminophen 500 MG TAB 1000 MG PO (05:52)
[2024-01-15] MEDS: Ketorolac 15 MG/ML VIAL IM (05:52)
--- NOTE | 2024-01-15 07:01 | DI.VRAD_ITS ---
PROCEDURE INFORMATION: Exam: XR Right Toe(s) Exam date and time: 01/15/2024 6:07 AM Age: 43 years old Clinical indication: Pain; Foot; Right; Additional info: Pain lateral distal right great toe, swelling TECHNIQUE: Imaging protocol: Radiologic exam of the right toes. Views: Minimum 2 views. COMPARISON: No relevant prior studies available. FINDINGS: Bones/joints: Normal. Soft tissues: Normal. IMPRESSION: No acute findings. Dictated and Authenticated by: Kanchan Sim MD. Ordering:JULIAN Mayer MD
[2024-01-15 07:16] VITALS: BP 150/90; PULSE 70; RESP 16; TEMP 36.4; O2SAT 98
== END 2024-01-15 07:17 | disposition home or self-care (01) ==
PROVIDERS: Emergency Provider Student in an Organized Health Care Education/Training Program; PCP Family Medicine
DX: R22.41 Localized swelling, mass and lump, right lower limb (principal); M79.674 Pain in right toe(s); E11.40 Type 2 diabetes mellitus with diabetic neuropathy, unspecified; Z79.84 Long term (current) use of oral hypoglycemic drugs; Z79.4 Long term (current) use of insulin; F17.210 Nicotine dependence, cigarettes, uncomplicated
CPT/HCPCS: 96372; 99284; 73620; J1885

== ENCOUNTER 2024-02-11 13:47 | Outpatient (REF) | payer MEDICARE, MEDICAID, SELFPAY ==
[2024-02-11 15:40] LABS: COVID-19 PCR Negative (Negative); Influenza A PCR Negative (Negative); Influenza B PCR Negative (Negative); RSV PCR Negative (Negative)
[2024-02-11 15:43] LABS: Source Nasopharynx
== END 2024-02-11 13:48 | disposition home or self-care (01) ==
LOC: LBN 13:47
PROVIDERS: PCP Family Medicine; Visit Provider Physician Assistant Medical
DX: J06.9 Acute upper respiratory infection, unspecified (principal)
CPT/HCPCS: 87637

== ENCOUNTER 2024-03-12 01:00 | Emergency (ER) | payer MEDICARE, MEDICAID, SELFPAY ==
[2024-03-12 01:04] VITALS: BP 99/75; PULSE 83; RESP 16; TEMP 35.7; O2SAT 97
[2024-03-12 02:35] VITALS: BP 130/74; PULSE 73; RESP 16; O2SAT 95
--- NOTE | 2024-03-12 03:46 | W.ED.GENAD ---
Discharge Plan Disposition Patient Disposition: Home Condition: Good Discharge Details Clinical Impression: Splinter in skin Primary Care Provider: Leidy Gutierres ED Provider: Leyla Carter Home Meds and New Rx's Prescriptions: Continued duloxetine 30 mg capsule,delayed release(DR/EC) 30 mg PO DAILY doxepin 10 mg capsule 10 mg PO TID gabapentin [Neurontin] 600 mg tablet 800 mg PO TID glimepiride 4 mg tablet 2 mg PO DAILY propranolol 20 mg tablet 20 mg PO BID olanzapine 10 mg tablet 10 mg PO DAILY omeprazole 40 mg capsule,delayed release(DR/EC) 40 mg PO DAILY prochlorperazine maleate 10 mg tablet 10 mg PO Q6H PRN (DME) blood-glucose meter [OneTouch Ultra2 Meter] Kit See Rx Instructions .Route Qty: 1 3RF Rx Instructions: Twice daily (DME) OneTouch Ultra Test Strip See Rx Instructions .Route Qty: 100 3RF Rx Instructions: twice daily (DME) lancets [BD Ultra Fine Lancets] 33 gauge misc See Rx Instructions .Route Qty: 100 0RF Rx Instructions: twice daily albuterol sulfate 90 mcg/actuation HFA aerosol inhaler 2 puff inhalation Q6H PRN (Reason: shortness of breath or wheezing) Qty: 8.5 3RF Jardiance 10 mg tablet 10 mg PO DAILY Qty: 90 3RF (DME) pen needle, diabetic [Pen Needle] 29 gauge x 1/2 needle 1 ea Miscellaneous TID Qty: 90 3RF Rx Instructions: 31 gauge x5/16 Once daily trazodone 150 mg tablet 450 mg PO HS duloxetine 60 mg capsule,delayed release(DR/EC) 60 mg PO HS insulin degludec [Tresiba FlexTouch U-100] 100 unit/mL (3 mL) insulin pen 60 unit SUBCUT DAILY clindamycin HCl 300 mg capsule 300 mg PO Q8H Linzess 72 mcg capsule 145 mcg PO DAILY prochlorperazine maleate [Compazine] 10 mg tablet 10 mg PO Q6H PRNQty: 10 0RF Discontinued indomethacin 50 mg capsule 50 mg PO TID Rx Instructions: administer with food or milk triamcinolone acetonide 0.1 % cream 1 applic topical BID valacyclovir 1 gram tablet 1,000 mg PO BID mirtazapine 15 mg tablet 15 mg PO QHS Qty: 90 3RF montelukast 10 mg tablet 10 mg PO DAILY Qty: 90 3RF Discharge Instructions Additional Instructions: Keep the area clean and dry. Seek medical attention for new or worsening symptoms including worsening pain, redness, or swelling. HPI General Mode of arrival: ambulatory. Date/Time Provider Initiated Documentation: 03/12/24 01:10. Limitations to Documentation: no limitations. Information obtained by: patient. HPI Narrative: 43yo F with T2DM, HTN, presenting for splinter. Sat on wooden deck earlier today, splinter to left buttock, unable to remove at home. Otherwise in her usual state of health. Related Data Home Medications ?Medication ?Instructions ?Recorded ?Confirmed albuterol sulfate 90 mcg/actuation 2 puff inhalation Q6H PRN 09/06/22 03/12/24 aerosol inhaler shortness of breath or wheezing #8.5 grams blood sugar diagnostic (OneTouch #100 ea 09/06/22 03/12/24 Ultra Test strips) blood-glucose meter (OneTouch #1 ea 09/06/22 03/12/24 Ultra2 Meter kit) empagliflozin 10 mg tablet 10 mg PO DAILY #90 tabs 09/06/22 03/12/24 (Jardiance) lancets 33 gauge (BD Ultra Fine #100 ea 09/06/22 03/12/24 Lancets) pen needle, diabetic 29 gauge x ##90 09/06/22 03/12/24 1/2 (Pen Needle) prochlorperazine maleate 10 mg 10 mg PO Q6H PRN #10 tabs 11/13/23 03/12/24 tablet (Compazine) duloxetine 60 mg capsule,delayed 60 mg PO HS 01/15/24 03/12/24 release insulin degludec 100 unit/mL (3 60 unit subcut DAILY 01/15/24 03/12/24 mL) subcutaneous pen (Tresiba FlexTouch U-100 insulin) trazodone 150 mg tablet 450 mg PO HS 01/15/24 03/12/24 doxepin 10 mg capsule 10 mg PO TID 02/17/24 03/12/24 duloxetine 30 mg capsule,delayed 30 mg PO DAILY 02/17/24 03/12/24 release gabapentin 600 mg tablet 800 mg PO TID 02/17/24 03/12/24 (Neurontin) glimepiride 4 mg tablet 2 mg PO DAILY 02/17/24 03/12/24 olanzapine 10 mg tablet 10 mg PO DAILY 02/17/24 03/12/24 omeprazole 40 mg capsule,delayed 40 mg PO DAILY 02/17/24 03/12/24 release prochlorperazine maleate 10 mg 10 mg PO Q6H PRN 02/17/24 03/12/24 tablet propranolol 20 mg tablet 20 mg PO BID 02/17/24 03/12/24 clindamycin HCl 300 mg capsule 300 mg PO Q8H 03/12/24 03/12/24 linaclotide 72 mcg capsule 145 mcg PO DAILY 03/12/24 03/12/24 (Linzess) Previous Rx's ?Medication ?Instructions ?Recorded albuterol sulfate 90 mcg/actuation 2 puff inhalation Q6H PRN 09/06/22 aerosol inhaler shortness of breath or wheezing #8.5 grams blood sugar diagnostic (OneTouch #100 ea 09/06/22 Ultra Test strips) blood-glucose meter (MiMediaTouch #1 ea 09/06/22 Ultra2 Meter kit) empagliflozin 10 mg tablet 10 mg PO DAILY #90 tabs 09/06/22 (Jardiance) lancets 33 gauge (BD Ultra Fine #100 ea 09/06/22 Lancets) pen needle, diabetic 29 gauge x ##90 09/06/22 1/ (Pen Needle) prochlorperazine maleate 10 mg 10 mg PO Q6H PRN #10 tabs 11/13/23 tablet (Compazine) Allergies Allergy/AdvReac Type Severity Reaction Status Date / Time fluconazole Allergy Unknown Other (See Unverified 01/15/24 05:25 Comment) sulfamethoxazole (From Allergy dont Verified 01/15/24 05:25 Bactrim) remember trimethoprim (From Bactrim) Allergy heeadache Verified 01/15/24 05:25 tomato AdvReac Intermediate severe Unverified 01/15/24 05:25 migraines/abd cramping/diarrhea dapagliflozin AdvReac headache Verified 01/15/24 05:25 diarrhea General Stated Complaint: ForeignBody DERRELL: 4 Review of Systems Narrative: see HPI Exam Narrative Exam Narrative: General: Alert, well appearing, well nourished, in no acute distress. Head: Normocephalic, atraumatic Neck: Trachea midline, ?Neck supple. Cardiac: No cyanosis. Well perfused. Resp: No respiratory distress. Speaking in full sentences. . Skin: ?Left lower medial buttock with small splinter Extremities: ?No deformities.? No peripheral edema. Neurologic: GCS 15. ? Moves all extremities freely against gravity Course Vital Signs Vital signs: Vital Signs Temperature 35.7 C L 03/12/24 01:04 Pulse 83 03/12/24 01:04 Respiratory Rate 16 03/12/24 01:04 Blood Pressure 99/75 L 03/12/24 01:04 Pulse Oximetry 97 03/12/24 01:04 Temperature 35.7 C L 03/12/24 01:04 Temperature Source Temporal Artery Scan 03/12/24 01:04 Pulse 73 03/12/24 02:35 Respiratory Rate 16 03/12/24 02:35 Respiratory Effort Normal 03/12/24 01:07 Respiratory Pattern Normal 03/12/24 01:07 Blood Pressure 130/74 03/12/24 02:35 Blood Pressure Position Sitting 03/12/24 01:04 Pulse Oximetry 95 03/12/24 02:35 Oxygen Delivery Method Room Air 03/12/24 02:35 Oxygen Flow Rate 0 03/12/24 02:35 Pain Level 2 03/12/24 02:35 Procedures Foreign Body Removal Time Out Performed: yes Site: left Description of foreign body: other (splinter) Sedation/Analgesia: other (lidocaine 2% without epi, 0.5 cc) Technique: manual removal and incision made to facilitate removal Confirmed by:: direct visualization Complications: none Post-procedure exam: awake, alert Medical Decision Making 43yo F with T2DM, HTN, presenting for splinter to left buttock, unable to remove at home. Reports tetanus UTD. Vital signs reassuring, small splinter on exam. Removed. Discharged home. Quality:SDOH Health Related Social Needs: Health related social needs food insecurity(Z59.41) PFSH All Active Problems (Updated 03/12/24 @ 03:50 by Leyla Carter MD) Splinter in skin (Acute) Cervical disc disease (Acute) Lumbar facet joint syndrome (Acute) Hyperglycemic crisis in diabetes mellitus (Acute) B12 deficiency (Acute) Memory loss of unknown cause (Acute) Hypertension (Chronic) Low back pain (Acute) Neuropathy (Acute) Borderline personality disorder (Acute) PTSD (post-traumatic stress disorder) (Acute) Bipolar 2 disorder, major depressive episode (Acute) Type 2 diabetes mellitus not at goal (Acute) Gastroparesis (Acute) Medical History COVID-19 Furuncle of labia majora Surgical History Hx of section x3 H/O total hysterectomy Family History Mother Alcohol use disorder Father Alcohol use disorder Brother No problems noted. Son Depression Son Depression Daughter Depression Daughter No problems noted. Social History Smoking/Tobacco Use Status: Current every day Tobacco Type: cigarettes Tobacco: How many years used: 25 Quit status: considering quitting Second Hand Exposure: Yes Smoking risk assessment performed?: Yes Alcohol Intake: never Drug use: Daily Substance use type: marijuana Caregiver/Support person: No Household members: significant other, family and children Housing: house Communication Needs: None Do you need help understanding health information?: Always Pets and animals: Yes Pets and animals: dog(s) Sexually active: Yes Do you think of yourself as: straight/heterosexual Current gender identity: female How often do you talk on the phone with friends or family?: never How often do you get together with friends or relatives?: never How often do you attend yazdanism or confucianist services?: 4 or more times per year Do you belong to any clubs or organized social groups?: no Panel score (0-1 are the most socially isolated patients): 1 What type of physical activity do you participate in: none Frequency: does not exercise Marie/Jain: None Special marie needs: No Seatbelt use: always Helmet use: Yes Helmet use: always Drive intox or ride w/intox [employer] company driver: No Do you feel safe at home: Yes Do you feel safe in your relationship?: Yes
[2024-03-12] MEDS: Lidocaine 2% Multi-Dose 50 ML VIAL (03:50)
== END 2024-03-12 04:06 | disposition home or self-care (01) ==
PROVIDERS: Emergency Provider Student in an Organized Health Care Education/Training Program; PCP Family Medicine
DX: S30.850A Superficial foreign body of lower back and pelvis, initial encounter (principal); E11.9 Type 2 diabetes mellitus without complications; I10 Essential (primary) hypertension; F17.210 Nicotine dependence, cigarettes, uncomplicated; Z79.84 Long term (current) use of oral hypoglycemic drugs; Z79.4 Long term (current) use of insulin; X58.XXXA Exposure to other specified factors, initial encounter; Y93.89 Activity, other specified; Y92.018 Other place in single-family (private) house as the place of occurrence of the external cause
CPT/HCPCS: 10120; 99283; J2003

== ENCOUNTER → 2024-03-25 14:38 | Outpatient (BNVA) | payer MEDICARE, MEDICAID, SELFPAY | PROVIDERS: PCP Family Medicine; Referring Provider Family Medicine; Visit Provider Podiatrist | DX: E11.42 Type 2 diabetes mellitus with diabetic polyneuropathy (principal); G62.9 Polyneuropathy, unspecified; E53.8 Deficiency of other specified B group vitamins; L84 Corns and callosities; M79.671 Pain in right foot; M79.672 Pain in left foot; R25.2 Cramp and spasm | CPT/HCPCS: 99214 ==

== ENCOUNTER 2024-08-26 21:04 | Outpatient (REF) | payer MEDICARE, MEDICAID, SELFPAY ==
[2024-08-26 21:46] LABS: Abs Immature Grans 0.01 10^3/uL (0.0-0.06); Absolute Basophil Count 0.06 10^3/uL (0.0-0.2); Absolute Eosinophil Count 0.09 10^3/uL (0.0-0.7); Absolute Lymphocyte Count 2.56 10^3/uL (1.2-3.4); Absolute Monocyte Count 0.34 10^3/uL (0.1-0.8); Absolute Neutrophil Count 3.78 10^3/uL (1.2-6.7); Basophils % 0.9 %; Eosinophils % 1.3 %; HCT 47.7 % (36.0-46.0); HGB 16.2 g/dL (11.2-15.7); Immature Grans % 0.1 %; Lymphocytes % 37.4 %; MCH 30.3 pg (27.0-33.0); MCV 89 fL (80-95); MPV 11.2 fL (8.0-11.0); Neutrophils % 55.3 %; Platelet Count 294 10^3/uL (130-400); RBC 5.34 10^6/uL (3.93-5.22); RDW 12.8 % (11.7-14.6); RDW-SD 41.9 fL; WBC 6.84 10^3/uL (4.4-10.8)
[2024-08-26 22:02] LABS: Hemoglobin A1C 6.9 % (<5.7)
[2024-08-26 22:04] LABS: Iron 47 ug/dL (50-170); Total Iron Binding Capacity 359 ug/dL (250-450); Transferrin Sat 13 % (15-50)
[2024-08-26 22:30] LABS: BUN 8 mg/dL (7-18); Calcium 9.6 mg/dL (8.5-10.1); Calculated LDL 159 mg/dL (<100); Chloride 104 mmol/L (98-107); Cholesterol 259 mg/dL (<200); Estimated GFR 72.58 (mL/min/1.73m2); Ferritin 85 ng/mL (8-252); Glucose 137 mg/dL (74-106); HDL Cholesterol 52 mg/dL (>or=50); Sodium 142 mmol/L (136-145); TSH (W/Ref FT4) 0.49 uIU/mL (0.36-3.74); Triglyceride 242 mg/dL (<150)
[2024-08-26 23:07] LABS: Vitamin B12 364 pg/mL (193-986)
== END 2024-08-26 21:05 | disposition home or self-care (01) ==
LOC: NCHCN 21:04
PROVIDERS: PCP Family Medicine; Visit Provider Family Medicine
DX: E78.2 Mixed hyperlipidemia (principal); L65.9 Nonscarring hair loss, unspecified; Z01.818 Encounter for other preprocedural examination; Z79.4 Long term (current) use of insulin
CPT/HCPCS: 80048; 80061; 82607; 82728; 83036; 83540; 83550; 84443; 85025

== ENCOUNTER 2025-02-14 16:18 | Outpatient (REF) | payer MEDICARE, MEDICAID, SELFPAY ==
[2025-02-14 16:12] LABS: Abs Immature Grans 0.02 10^3/uL (0.0-0.06); HCT 48.5 % (36.0-46.0); HGB 16.3 g/dL (11.2-15.7); Immature Grans % 0.3 %; MCH 29.7 pg (27.0-33.0); MCHC 33.6 % (32.0-36.0); MCV 88 fL (80-95); MPV 11.5 fL (8.0-11.0); Platelet Count 338 10^3/uL (130-400); RBC 5.49 10^6/uL (3.93-5.22); RDW 13.1 % (11.7-14.6); RDW-SD 42.5 fL; WBC 7.08 10^3/uL (4.4-10.8)
[2025-02-14 16:33] LABS: Iron 95 ug/dL (50-170); Total Iron Binding Capacity 357 ug/dL (250-450); Transferrin Sat 27 % (15-50)
[2025-02-14 16:53] LABS: Ferritin 141 ng/mL (8-252); Magnesium 2.0 mg/dL (1.8-2.4); Vitamin B12 443 pg/mL (193-986)
[2025-02-15 18:40] LABS: FSH 70.0 mIU/mL (See Note)
== END 2025-02-14 16:19 | disposition home or self-care (01) ==
LOC: NCHCN 16:18
PROVIDERS: PCP Family Medicine; Visit Provider Family Medicine
DX: G62.9 Polyneuropathy, unspecified (principal); N95.1 Menopausal and female climacteric states; E61.1 Iron deficiency
CPT/HCPCS: 82607; 82728; 83001; 83540; 83550; 83735; 85025

== ENCOUNTER 2025-02-21 02:12 | Outpatient (CLI) | payer MEDICARE, MEDICAID, SELFPAY ==
--- NOTE | 2025-02-21 | DI.MAMMO_ITS ---
Exam(s) MAMMO SCREENING EXAM: MAMMO SCREENING CLINICAL HISTORY: SCREENING MAMMO Z12.31 TECHNIQUE: Bilateral full field digital CC and MLO mammographic images were obtained with 3D tomosynthesis and utilizing computer aided detection (CAD). COMPARISON: Comparison is made with prior examinations. FINDINGS: Masses/Architectural Distortion: No suspicious masses or areas of architectural distortion are present. Microcalcifications: No suspicious pleomorphic-type are seen. Skin Thickening/Nipple Retraction: None. IMPRESSION: 1. No significant interval change with no specific features of malignancy noted. 2. Unless there is more urgent need, screening mammography is recommended, as per [employer] guidelines. BI-RADS Category 1 - Negative Breast Density - Category B - There are scattered areas of fibroglandular density. Breast density Category C or D implies that the patient has dense breast tissue. Dense breast tissue can make it harder to find cancer on a mammogram. Dense breast tissue is also associated with an increased risk of breast cancer. This information about the result of the mammogram report was provided to the patient to raise their awareness. Use this report when you speak with the patient about their risks for breast cancer, which includes their family history. At that time, you may recommend additional screening tests (Ultrasound or MRI) as these tests may add significant information. A negative radiographic report should not delay biopsy if a dominant or clinically suspicious mass is present. Up to ten percent of cancers are not identified on mammography. A negative report may reinforce clinical impression. Adenosis and dense breasts may obscure an underlying neoplasm. False positive reports average 6 to 10%. Patient will receive a letter notifying them of these results.
== END 2025-02-21 02:32 ==
PROVIDERS: PCP Family Medicine; Visit Provider Family Medicine
DX: Z12.31 Encounter for screening mammogram for malignant neoplasm of breast (principal)
CPT/HCPCS: 77063; 77067